=== PATIENT | male | born 1955 | race Caucasian/White ===

== ENCOUNTER → 2018-05-12 12:18 | Outpatient (CLI) | payer BC, SELFPAY ==
[2018-05-12 14:47] LABS: ALB/GLOB Ratio 0.9 RATIO (0.9-2.4); AST(SGOT) 26 U/L (15-37); Alanine Aminotransfer ALT/SGPT 31 U/L (16-61); Albumin, Serum 3.7 g/dL (3.2-5.0); Alkaline Phosphatase 83 U/L (45-117); Anion Gap 10 (5-15); BUN 18 mg/dL (7-18); BUN/Creat Ratio 21.5 RATIO (10-20); Calcium,Total 8.9 mg/dL (8.5-10.1); Chloride 102 mmol/L (98-107); Cholesterol 232 mg/dL (200); Creatinine, Serum 0.84 mg/dL (0.70-1.30); EST Glomerular Filtration Rate 99 mL/min (>60); Est Glom Filt Rate - Afr Amer 120 mL/min (>60); Globulin 4.3 g/dL (2.2-4.2); Glucose 106 mg/dL (74-106); High Density Lipoprotein 47 mg/dL; Potassium 3.6 mmol/L (3.5-5.1); Sodium Level 137 mmol/L (136-145); Triglycerides 150 mg/dL; Very Low Density Lipoprotein 30 mg/dL (5-40)
== END ==
PROVIDERS: Family Provider Family Medicine; PCP Family Medicine; Visit Provider Family Medicine
DX: Z00.00 Encounter for general adult medical examination without abnormal findings (principal); I10 Essential (primary) hypertension
CPT/HCPCS: 36415; 80053; 80061

== ENCOUNTER → 2019-02-08 08:28 | Outpatient (CLI) | payer BC, SELFPAY ==
[2019-02-08 10:38] LABS: ALB/GLOB Ratio 0.9 RATIO (0.9-2.4); AST(SGOT) 22 U/L (15-37); Alanine Aminotransfer ALT/SGPT 23 U/L (16-61); Albumin, Serum 3.5 g/dL (3.2-5.0); Alkaline Phosphatase 89 U/L (45-117); Anion Gap 8 (5-15); BUN 15 mg/dL (7-18); BUN/Creat Ratio 19.5 RATIO (10-20); Chloride 103 mmol/L (98-107); Cholesterol 220 mg/dL (200); Creatinine, Serum 0.77 mg/dL (0.70-1.30); EST Glomerular Filtration Rate 109 mL/min (>60); Est Glom Filt Rate - Afr Amer 132 mL/min (>60); Globulin 3.9 g/dL (2.2-4.2); Glucose 101 mg/dL (74-106); High Density Lipoprotein 53 mg/dL; PSA,Total - Annual Screen 6.84 ng/mL (0.00-4.00); Potassium 4.6 mmol/L (3.5-5.1); Protein, Total 7.4 g/dL (6.4-8.2); Sodium Level 139 mmol/L (136-145); Triglycerides 131 mg/dL; Very Low Density Lipoprotein 26 mg/dL (5-40)
== END ==
PROVIDERS: Family Provider Family Medicine; PCP Family Medicine; Referring Provider Family Medicine; Visit Provider Family Medicine
DX: I10 Essential (primary) hypertension (principal); N40.0 Benign prostatic hyperplasia without lower urinary tract symptoms; R73.01 Impaired fasting glucose
CPT/HCPCS: 36415; 80053; 80061; 84153; G0103

== ENCOUNTER → 2019-04-19 08:07 | Outpatient (CLI) | payer OTHER, SELFPAY ==
[2019-04-19 10:38] LABS: ALB/GLOB Ratio 0.9 RATIO (0.9-2.4); AST(SGOT) 23 U/L (15-37); Alanine Aminotransfer ALT/SGPT 25 U/L (16-61); Albumin, Serum 3.3 g/dL (3.2-5.0); Alkaline Phosphatase 93 U/L (45-117); Anion Gap 8 (5-15); BUN 17 mg/dL (7-18); BUN/Creat Ratio 22.5 RATIO (10-20); Calcium,Total 8.8 mg/dL (8.5-10.1); Chloride 106 mmol/L (98-107); Cholesterol 142 mg/dL (200); Creatinine, Serum 0.76 mg/dL (0.70-1.30); EST Glomerular Filtration Rate 111 mL/min (>60); Est Glom Filt Rate - Afr Amer 135 mL/min (>60); Globulin 3.8 g/dL (2.2-4.2); Glucose 101 mg/dL (74-106); High Density Lipoprotein 49 mg/dL; Potassium 4.4 mmol/L (3.5-5.1); Protein, Total 7.1 g/dL (6.4-8.2); Sodium Level 139 mmol/L (136-145); Triglycerides 76 mg/dL; Very Low Density Lipoprotein 15 mg/dL (5-40)
== END ==
PROVIDERS: Family Provider Family Medicine; PCP Family Medicine; Referring Provider Family Medicine; Visit Provider Family Medicine
DX: I10 Essential (primary) hypertension (principal)
CPT/HCPCS: 36415; 80053; 80061

== ENCOUNTER → 2020-05-14 10:14 | Outpatient (CLI) | payer BC, SELFPAY ==
[2020-05-14 12:48] LABS: ALB/GLOB Ratio 0.8 RATIO (0.9-2.4); AST(SGOT) 24 U/L (15-37); Alanine Aminotransfer ALT/SGPT 28 U/L (16-61); Albumin, Serum 3.3 g/dL (3.2-5.0); Alkaline Phosphatase 94 U/L (45-117); Anion Gap 7 (5-15); BUN 18 mg/dL (7-18); Calcium,Total 8.8 mg/dL (8.5-10.1); Chloride 102 mmol/L (98-107); Cholesterol 179 mg/dL (200); Creatinine, Serum 0.82 mg/dL (0.70-1.30); EST Glomerular Filtration Rate 101 mL/min (>60); Est Glom Filt Rate - Afr Amer 122 mL/min (>60); Globulin 4.3 g/dL (2.2-4.2); Glucose 111 mg/dL (74-106); High Density Lipoprotein 41 mg/dL; PSA,Total - Annual Screen 6.83 ng/mL (0.00-4.00); Potassium 4.2 mmol/L (3.5-5.1); Protein, Total 7.6 g/dL (6.4-8.2); Sodium Level 137 mmol/L (136-145); Triglycerides 110 mg/dL; Very Low Density Lipoprotein 22 mg/dL (5-40)
== END ==
PROVIDERS: PCP Family Medicine; Visit Provider Family Medicine
DX: I10 Essential (primary) hypertension (principal); N40.0 Benign prostatic hyperplasia without lower urinary tract symptoms
CPT/HCPCS: 36415; 80053; 80061; 84153; G0103

== ENCOUNTER 2020-06-18 12:11 | Inpatient (IN) | payer BC, SELFPAY ==
[2020-06-18] VITALS (9 sets, daily range): BP systolic 106–151; BP diastolic 58–76; PULSE 41–70; RESP 15–16; TEMP 36.4–36.7; O2SAT 48–98; BMI 37.9; BMI 37.7
--- NOTE | 2020-06-18 12:23 | EKG12_ITS ---
Test Reason : BRADYCARDIA Blood Pressure : / mmHG Vent. Rate : 041 BPM Atrial Rate : 041 BPM P-R Int : 302 ms QRS Dur : 124 ms QT Int : 518 ms P-R-T Axes : 023 -43 009 degrees QTc Int : 427 ms Marked sinus bradycardia with 2nd degree AV block with 2:1 heart block Left axis deviation Septal infarct , age undetermined Abnormal ECG When compared with ECG of 19-DEC-2007 10:25, Significant changes have occurred Confirmed by GERMAN SALAZAR, SANG ([id number]), commissioning editor EDGARD ADKINS ([id number] on 06/20/2020 3:51:37 PM Referred By: DR MCFARLAND Confirmed By:SANG PORTER MD
--- NOTE | 2020-06-18 12:27 | ED.VISSUMM ---
- ER Visit Summary Date of Service: 06/18/20 Chief Complaint: Irregular heartbeat History of Present Illness: The patient is a 65 M who was referred to the ED from his director of investigations office. He was at a visit for sleep apnea. He was noted to have an irregular heartbeat on exam and was referred to the ED. He has no symptoms. No history of atrial fibrillation or other abnormal heart rhythms. He is not on anticoagulation. No history of coronary disease or PE. Physical Examination: Afebrile and vital signs unremarkable except for heart rate of 56. Alert and oriented. No acute distress. Heart is a regular. Lungs are clear. Skin appears normal. Calves soft and supple. Test Results: EKG, chest x-ray, labs pending. Emergency Department Course and Treatment: Patient placed on the monitor. Treated with aspirin while awaiting results. EKG shows what appears to be secondary heart block, Mobitz type II with 2-1 ventricular conduction and a ventricular rate of 43. While I am evaluating him, his heart rate will increase to the 80s and then return to the 40s fairly frequently. His work-up here is unremarkable including labs and chest x-ray. He has remained stable and has no symptoms currently. I spoke with Dr. Lieca who spoke with Dr. Cabello, and we feel that he can receive care at this facility. Patient will be admitted to Dr. Barrios. Treatment Plan: As above Disposition: PCU Impression: Secondary heart block suspected This note was generated with Edictive dictation software. It may contain incorrect words, spelling, and punctuation that were not noted in review of the chart prior to signing ED Disposition - Plan for ED Patient: Referrals: Ras Alberts MD [Primary Care Provider] -
[2020-06-18] MEDS: Aspirin 81 MG TAB.CHEW 324 MG PO (12:30)
--- NOTE | 2020-06-18 12:35 | RAD_ITS ---
STUDY: X-RAY CHEST REASON FOR EXAM: Male, 65 years old. PALPITATIONS, ASTHMA TECHNIQUE: Single AP portable view of the chest. COMPARISON: None. FINDINGS: EKG electrodes are seen. The lungs are clear and expanded. Scattered calcified granulomas. There is no demonstrated pleural abnormality. Normal size heart. Normal mediastinum and teresa. Normal visualized pulmonary arteries. Normal visualized aortic arch and descending thoracic aorta. There are diffuse degenerative changes of the visualized thoracic spine. Normal visualized ribs, clavicles, and shoulders. There is no demonstrated abnormality of the visualized soft tissue structures of the upper abdomen. RAD/Chest 1 View (Portable) IMPRESSION: No acute abnormality is seen. Electronically Signed: Duarte Bullock, at 13:04 EDT , Service support ,
[2020-06-18 12:36] LABS: Absolute Lymphocyte Count 2.23 X10^3/uL (0.83-4.51); Absolute Neutrophil Count 7.5 X10^3/uL (2.0-7.7); Basophil% 0.9 % (0-1); Eosinophil# 0.53 X10^3/uL; Eosinophils% 4.6 % (0-5); Hematocrit 40.5 % (40-54); Hemoglobin 13.6 g/dL (13.0-16.5); Lymphocyte # 2.23 X10^3/ul (4.0); Lymphocyte % 19.5 % (19-41); Mean Corp Hgb Conc 33.6 g/dL (32-36); Mean Corpuscular Volume 89.4 fL (80-94); Mean Platelet Vol. 12.4 fl (6.2-12.0); Monocyte% 8.8 % (0-10); NRBC Flagged by Analyzer 0 % (0-5); Neutrophil # 7.52 X10^3/uL (2.7-7.7); Neutrophil % 65.9 % (47-70); Platelet Count 194 K/mm3 (150-450); RBC Distribution Width CV 13.7 % (11.6-14.6); RBC Distribution Width SD 44.6 fl (35.1-43.9); Red Blood Count 4.53 M/mm3 (4.6-6.2); White Blood Count 11.4 K/mm3 (4.4-11.0)
[2020-06-18 12:39] LABS: Prothrombin Time (Protime)PT. 12.8 SECONDS (11.7-14.9)
[2020-06-18 12:40] LABS: Partial Thromboplast Time 30.5 Seconds (24.1-36.2)
[2020-06-18 13:00] LABS: Anion Gap 5 (5-15); BUN 18 mg/dL (7-18); Calcium,Total 8.9 mg/dL (8.5-10.1); Chloride 106 mmol/L (98-107); Creatinine, Serum 0.82 mg/dL (0.70-1.30); EST Glomerular Filtration Rate 101 mL/min (>60); Est Glom Filt Rate - Afr Amer 123 mL/min (>60); Estimated Creatinine Clearance 86.21 ml/min; Glucose 90 mg/dL (74-106); Potassium 3.8 mmol/L (3.5-5.1); Sodium Level 138 mmol/L (136-145)
--- NOTE | 2020-06-18 13:31 | HP.PCM_ITS ---
Problem List (1) Bradycardia Status: Acute (2) Hypertension Status: Chronic Qualifiers: Hypertension type: essential hypertension Qualified Code(s): I10 - Essential (primary) hypertension (3) Sleep apnea Status: Chronic Qualifiers: Sleep apnea type: unspecified type Qualified Code(s): G47.30 - Sleep apnea, unspecified History of Present Illness Date of Admission: 06/18/20 Chief Complaint: Irregular heart rate - noted today The patient is a 65 year old M with PMHx of Hypertension, hyperlipidemia, suspected sleep apnea who comes in from Dr. Miranda's office. Patient had gone to the Dr. Miranda's office as a referral for suspected sleep apnea. During the process of taking vitals during intake, patient was noted to have bradycardia. He was sent to the ED. He denied any history of heart disease. He denied any complaints such as dizziness or palpitations or chest discomfort. He is not on beta-blockers or calcium channel blockers. He feels well. No recent tick bites. No history of sarcoidosis. Vitals in the ED showed temperature of 97.6F, heart rate 56, blood pressure 151/76, respiratory to 16, SPO2 was 97% on room air. WBC count was 11.4, hemoglobin 13.6, platelet count 194, INR 1.0, CMP was unremarkable, troponin was negative. Magnesium 2.1, TSH 0.94. EKG shows normal sinus rhythm, CT interval of 290, second-degree AV block type II, 2:1 ratio, QTc 419, no acute ST-T changes. Chest x-ray shows no acute abnormality. Past Medical History Past Medical History (Chronic Problems): Chronic Problems Hypertension (Chronic) Sleep apnea (Chronic) Allergies cephalexin [From Keflex] Allergy (Verified 06/18/20 12:15) Hives Home Medications: Ambulatory Orders Medication Instructions Recorded Acetaminophen [Tylenol Extra 1,000 mg PO DAILY PRN PRN 06/18/20 Strength] Albuterol Sulfate [Albuterol 1 - 2 puff IH Q4H PRN PRN 06/18/20 Sulfate HFA] Atorvastatin Calcium [Lipitor] 10 mg PO DAILY 06/18/20 Bifidobacterium Infantis [Align] 4 mg PO DAILY 06/18/20 Fluticasone 0.05% [Flonase Nasal 2 spray NASAL DAILY PRN PRN 06/18/20 [place]] Hydrochlorothiazide [Hctz] 12.5 mg PO DAILY 06/18/20 Loratadine 10 mg PO DAILY 06/18/20 Losartan Potassium [Cozaar] 50 mg PO DAILY 06/18/20 Mometasone Furoate [Asmanex 110 1 puff IH DAILY 06/18/20 mcg Twisthaler] Surgical History: cataract, - - s/p right knee menisceal repair Psychiatric History: No pertinent psych hx Lives: Spouse/ Significant Other Smoking Status: Never smoker Tobacco Use: Non-smoker Alcohol: None Drugs: None - *Family History Maternal History Items: Diabetes, Heart Disease Paternal History Items: Heart Disease - [place] Review of Systems Constitutional: Denies: Anorexia, Chills, Fever, Malaise, Weakness, Weight Change, Fatigue Eyes: Denies: Blurred vision, Cataracts, Conjunctivae Inflammation, Pain, Redness HEENT: Denies: Difficulty Hearing, Difficulty Swallowing, Head Aches, Hearing Changes, Sinus Congestion, Sinus Drainage, Sore Throat Cardiovascular: Denies: Chest Pain, Claudication, Orthopnea, Palpitations, Paroxysmal Noc. Dyspnea Respiratory: Denies: Cough, Hemoptysis, Shortness of breath at rest, Shortness of breath upon exertion, Sputum production Gastrointestinal: Denies: Abdominal Pain, Hematemesis, Hematochezia, Nausea, Vomiting Genitourinary: Denies: Dysuria Musculoskeletal: Denies: Joint Pain, Joint stiffness, Joint swelling, Joint Tenderness Skin: Denies: Rash, Wounds Neurological: Denies: Difficulty swallowing, Focal weakness, Numbness, Tingling Psychiatric: Denies: Anxiety, Depression, Homicidal Ideations, Suicidal Ideations Hematologic/ Lymphatic: Denies: Easy Bruising, Easy Bleeding VTE Information - Inpt Only VTE Present on Admission: No VTE Pharm Prophylaxis ordered?: Yes Patient Problems: Active and Suspected Problems Bradycardia (Acute) - Physical Exam Vitals/I&O's: Vital Signs Temp Pulse Resp BP Pulse Ox 97.6 F L 56 L 16 151/76 H 48 06/18/20 12:13 06/18/20 12:13 06/18/20 12:13 06/18/20 12:13 06/18/20 12:24 Oxygen Delivery Method Room Air Weight: 109.769 kg Body Mass Index (BMI) 37.9 General: Alert, Oriented x3, Cooperative, No apparent distress, - - obese HEENT: Atraumatic, PERRLA, EOMI, Normocephalic Oral: Moist Mucosa Neck: Supple Lungs: Clear to auscultation, Normal air movement Cardiovascular: Regular rate, Regular Rhythm, Normal S1, Normal S2, No murmurs Abdomen: Bowel Sounds Present, Soft, Non Tender, Non-Distended, No Hepato- splenomegaly Extremities: No edema Skin: No rashes Musculoskeletal: No Tenderness to Palpation of Joints or Extremities Lymphatic: No Cervical, Supraclavicular, or Inguinal Adenopathy Neurological: Cranial nerves II-XII grossly intact, Neuro grossly intact Psych/Mental Status: Normal Affect, Appropriate Laboratory Results 06/18/20 12:20: WBC 11.4 H, RBC 4.53 L, Hgb 13.6, Hct 40.5, MCV 89.4, MCH 30.0, MCHC 33.6, RDW Std Deviation 44.6 H, RDW Coeff of Karyn 13.7, Plt Count 194, MPV 12.4 H, Immature Gran % (Auto) 0.300, Neut % (Auto) 65.9, Lymph % (Auto) 19.5, [place] % (Auto) 8.8, Eos % (Auto) 4.6, Baso % (Auto) 0.9, Absolute Neuts (auto) 7.5, Absolute Lymphs (auto) 2.23, Nucleated RBC % 0 06/18/20 12:20: PT 12.8, INR 1.0, APTT 30.5 06/18/20 12:20: Sodium 138, Potassium 3.8, Chloride 106, Carbon Dioxide 27.0, Anion Gap 5, BUN 18, Creatinine 0.82, Estim Creat Clear Calc 86.21, Est GFR (MDRD) Af Amer 123, Est GFR (MDRD) Non-Af 101, BUN/Creatinine Ratio 22.0 H, Glucose 90, Calcium 8.9, Troponin I < 0.015 Assessment/Plan All Active Problems Bradycardia (Acute) 65 year old M with PMHx of Hypertension, hyperlipidemia, suspected sleep apnea who comes in with bradycardia 1. Bradycardia, 2nd degree AV block type 2, significant, asymptomatic Likely related to suspected DEONDRE No history of structural heart disease or likely medication side effect TSH is normal, magnesium is 2.1, findings are negative Cardiology consulted from the ED, will get 2D echo, Continue to monitor on telemetry 2. Hypertension, fairly uncontrolled, continue on home losartan, hydrochlorothiazide 3. Hyperlipidemia, continue on statin 4. Asthma/chronic allergies, not in acute exacerbation, continue on mometasone and loratadine 5. Suspected sleep apnea, will need to follow-up with crown ironer operator 6. DVT PPx- Lovenox SC Inpatient E&M: [id number] Init Hosp L3
--- NOTE | 2020-06-18 13:44 | NURSING ---
PCU PAINTSIL 2ND DEGREE HEART BLOCK
--- NOTE | 2020-06-18 15:03 | ECHOCS_ITS ---
Reason For Study: ARRHYTHMIA Procedure This was a 2D Doppler, Color Flow transthoracic echocardiogram. The study was technically difficult. Due to body habitus. Contrast injection was performed. Exam performed portable in patient room. Left Ventricle Normal LV size. Left ventricular systolic function is normal. The estimated ejection fraction is 60 %. Unable to assess diastolic dysfunction. No regional wall motion abnormalities noted. Right Ventricle Normal RV size. Normal systolic function. Atria Normal left atrium. Normal right atrium. No doppler evidence for ASD. Mitral Valve There is no mitral annular calcification. Normal mitral valve. Mild (1+) mitral valve insufficiency. Tricuspid Valve Normal tricuspid valve. Trivial tricuspid valve insufficiency. Unable to estimate RV systolic pressure/pulmonary artery pressure due to technically difficult study. Aortic Valve Trisinus/trileaflet aortic valve. Normal aortic valve. Pulmonic Valve The pulmonic valve is not well visualized. Great Vessels Normal sized aortic root. Pericardium/Pleural No pericardial effusion. MMode/2D Measurements & Calculations LVIDd: 5.3 cm IVSd: 1.1 cm Ao root diam: 3.5 cm LVIDs: 3.9 cm LVPWd: 1.1 cm FS: 25.4 % LAV(MOD-bp): 84.6 ml LA A4 area: 26.6 cm2 LA dimension(2D): 4.1 cm LAV(MOD-bp) Indexed: 38.6 ml/m2 LAV(MOD-sp2): 78.7 ml LAV(MOD-sp4): 91.5 ml Doppler Measurements & Calculations MV E max kamaljit: 118.9 cm/sec Ao V2 max: 173.5 cm/sec LV V1 max: 89.0 cm/sec Ao max P.1 mmHg LV V1 max P.2 mmHg PA V2 max: 98.0 cm/sec Interpretation Summary The study was technically difficult. Contrast injection was performed. Left ventricular systolic function is normal. The estimated ejection fraction is 60 %. Mild (1+) mitral valve insufficiency. Trivial tricuspid valve insufficiency. Unable to estimate RV systolic pressure/pulmonary artery pressure due to technically difficult study. Unable to assess diastolic dysfunction. Ordering Physician: Sophie^Destiny^^^ Referring Physician: Wicho Alberts Performed By: Kalyn Whipple, ELIZABETH, RVT
[2020-06-18 15:38] LABS: Magnesium 2.1 mg/dL (1.6-2.6); Thyroid Stim Hormone (TSH) 0.94 uIU/mL (0.358-3.74)
--- NOTE | 2020-06-18 17:31 | PCM.CONS.C ---
Problem List (1) Conduction disorder of the heart Status: Acute (2) Hypertension Status: Chronic Qualifiers: Hypertension type: essential hypertension Qualified Code(s): I10 - Essential (primary) hypertension (3) Sleep apnea Status: Chronic Qualifiers: Sleep apnea type: unspecified type Qualified Code(s): G47.30 - Sleep apnea, unspecified Reason for Consult Date of Consultation: 06/18/20 History of Present Illness: The patient is a 65 year old who is referred for evaluation of an underlying irregular heartbeat with findings of an underlying conduction system disorder while being evaluated for sleep apnea. The patient states to the best of his knowledge he has no defined cardiovascular disease. He believes he had an exercise tolerance test performed many years ago which was unremarkable. He states that he does get exertional chest discomfort/pressure at times across the top of his chest. This can be associate with shortness of breath and dyspnea. He has attributed this to his exercise-induced asthma. He does not seem to sense this discomfort at rest or at night. He has had no orthopnea, PND, or peripheral pitting edema. There has been no obvious palpitations or rapid heart rates and no obvious near-syncope or syncope. He was being evaluated by his marketing project manager today for consideration for a sleep study based upon concerns of obstructive sleep apnea. During this evaluation he was told he had a irregular heartbeat . He was recommended to contact his PCP. He did and his PCP recommended evaluation in the emergency department. There he had cardiac rhythm strips performed which demonstrated a combination of sinus rhythm/sinus tachycardia with first-degree AV block as well as sinus rhythm with first-degree block with evidence of 2-1 AV block with a left axis deviation and consideration for voltage criteria for LVH. He had a troponin I level which was negative. A chest x-ray was performed which demonstrated no acute cardiopulmonary disease. He was placed in the PCU for further evaluation. He has been on cardiac bus monitor. He has been noted to have evidence of his sinus rhythm with 2-1 AV block as well as PVCs and ventricular couplets. Does state he has a family history where his father at age 57 of a heart attack . He states he has an older brother who has heart related disease. He has another brother who has a permanent pacemaker secondary to a syncopal event. [] Past Medical History Allergies/Adverse Reactions: Allergies cephalexin [From Keflex] Allergy (Verified 06/18/20 12:15) Hives Home Medications: Ambulatory Orders Medication Instructions Recorded Acetaminophen [Tylenol Extra 1,000 mg PO DAILY PRN PRN 06/18/20 Strength] Albuterol Sulfate [Albuterol 1 - 2 puff IH Q4H PRN PRN 06/18/20 Sulfate HFA] Atorvastatin Calcium [Lipitor] 10 mg PO DAILY 06/18/20 Bifidobacterium Infantis [Align] 4 mg PO DAILY 06/18/20 Fluticasone 0.05% [Flonase Nasal 2 spray NASAL DAILY PRN PRN 06/18/20 [place]] Hydrochlorothiazide [Hctz] 12.5 mg PO DAILY 06/18/20 Loratadine 10 mg PO DAILY 06/18/20 Losartan Potassium [Cozaar] 50 mg PO DAILY 06/18/20 Mometasone Furoate [Asmanex 110 1 puff IH DAILY 06/18/20 mcg Twisthal[place]] Past Medical History (Chronic Problems): Chronic Problems Hypertension (Chronic) Sleep apnea (Chronic) Surgical History: cataract, - - s/p right knee menisceal repair Psychiatric History: No pertinent psych hx - *Family History Maternal History Items: Diabetes, Heart Disease Paternal History Items: Heart Disease - [place] Lives: Spouse/ Significant Other Smoking Status: Never smoker Tobacco Use: Non-smoker Alcohol: None Drugs: None Review of Systems - Review of Systems General: Denies: Fever, Night Sweats, Fatigue Cardiovascular: Reports: Chest Discomfort, Chest Discomfort with Exertion, Shortness of Breath, Shortness of Breath with Exertion. Denies: Orthopnea, PND, Peripheral Edema, Palpitations, Lightheadedness, Dizziness, Near Syncope, Syncope Respiratory: Reports: Shortness of Breath. Denies: Cough, Sputum Production, Hemoptysis Gastrointestinal: Denies: Hematemesis, Hematochezia, Melena Genitourinary: Denies: Dysuria, Hematuria Skin: Denies: Rash Subjectve: This is a 65-year-old white male who appears to be resting comfortably at the moment in no acute distress. Objective: Vital Signs Temp Pulse Resp BP Pulse Ox 97.6 F L 59 L 16 145/66 H 96 06/18/20 15:15 06/18/20 15:36 06/18/20 15:15 06/18/20 15:15 06/18/20 15:15 Oxygen Delivery Method Room Air Weight: 241 lb Body Mass Index (BMI) 37.7 General: Healthy Appearing, Awake, Alert, Oriented x 3, Cooperative, No Acute Distress, Obese HEENT: Atraumatic, Normocephalic, PERRL, EOMI, Sclera Non Icteric Neck: Supple, Good ROM, No JVD Lungs: Expiratory Wheezes-Justin Cardiovascular: Regular Rhythm, Premature Ectopic Beats, Normal S1, Normal S2 Vascular: No Carotid Bruits Abdomen: Bowel Sounds Present, Soft, Non Tender Extremities: No edema Neurological: No Focal Motor or Sensory Deficit Psych/Mental Status: Appropriate 06/18/20 12:20: WBC 11.4 H, RBC 4.53 L, Hgb 13.6, Hct 40.5, MCV 89.4, MCH 30.0, MCHC 33.6, Plt Count 194, MPV 12.4 H, Immature Gran % (Auto) 0.300, Neut % (Auto) 65.9, Lymph % (Auto) 19.5, Mcdonald % (Auto) 8.8, Eos % (Auto) 4.6, Baso % (Auto) 0.9, Absolute Neuts (auto) 7.5, Nucleated RBC % 0 06/18/20 12:20: PT 12.8, INR 1.0, APTT 30.5 06/18/20 12:20: Sodium 138, Potassium 3.8, Chloride 106, Carbon Dioxide 27.0, Anion Gap 5, BUN 18, Creatinine 0.82, Est GFR (MDRD) Af Amer 123, Est GFR (MDRD) Non-Af 101, BUN/Creatinine Ratio 22.0 H, Glucose 90, Calcium 8.9, Troponin I < 0.015 06/18/20 12:20: Magnesium 2.1 Rhythm: As noted above EKG: As noted above ECHO: Interpretation Summary The study was technically difficult. Contrast injection was performed. Left ventricular systolic function is normal. The estimated ejection fraction is 60 %. Mild (1+) mitral valve insufficiency. Trivial tricuspid valve insufficiency. Unable to estimate RV systolic pressure/pulmonary artery pressure due to technically difficult study. Unable to assess diastolic dysfunction CXR: Preliminary evaluation: No acute cardiopulmonary disease process appreciated; please see official report Assessment/Plan 1. Conduction system disorder The patient does have findings compatible with an underlying conduction system disorder with findings compatible with not only first-degree AV block but also 2-1 AV block as well as evidence of underlying cardiac ectopy with ventricular ectopy with PVCs and ventricular couplets. The etiology is uncertain at this time although there is a concern if the patient does have obstructive sleep apnea this may be a contributing factor. However at the same time he does have concerning chest discomfort with exertional activity. This would raise concern as to whether or not he could have CAD with myocardial ischemia that would be bringing out symptoms and affecting his conduction system. At the present time he will continue to be monitored. His cardiac enzymes will be followed. He is already had evaluation with a transthoracic echocardiogram. He is avoiding any rate limiting medications at this time. It was felt reasonable the patient be considered based upon his history and objective findings for further evaluation of the possibility of CAD contributing to these events with a diagnostic cardiac catheterization. The procedure and risks were discussed with him. He is agreeable to this approach. Depending upon the findings he may also need further evaluation and therapy with a permanent pacemaker device. 2. Hypertension He does have history of hypertension. He will need to continue medical management deemed appropriate. At the present time this would include non-rate limiting therapy. 3. Sleep apnea He has presented with a history compatible with sleep apnea. He is pending further formal evaluation by his marketing project manager. Comment: The patient's case has been discussed the patient, his spouse, the [facility] emergency department staff, the [facility] hospital staff. This note was generated using a voice recognition system and there may be incorrect words, spelling or punctuation that were not noted when reviewing the office note prior to saving. Procedure Criteria Procedure Type: Elective COVID Risk Discussion: The surgeon/proceduralist and patient have discussed in detail the risk of exposure to and/or potential harm posed by the COVID-19 virus with having a surgery/procedure at this time versus the risk of delaying the surgery/procedure. It is not possible to know either the risk of delaying the surgery or procedure or chance of getting an infection with perfect accuracy, but a joint decision was made between the patient and the surgeon/proceduralist to proceed at this time with the scheduled surgery/procedure as indicated on the consent form.
--- NOTE | 2020-06-18 23:37 | EKG12_ITS ---
Test Reason : PALPS Blood Pressure : / mmHG Vent. Rate : 043 BPM Atrial Rate : 043 BPM P-R Int : 290 ms QRS Dur : 130 ms QT Int : 496 ms P-R-T Axes : 023 -44 003 degrees QTc Int : 419 ms Marked sinus bradycardia with 1st degree A-V block with 2:1 AV Block Left axis deviation Left ventricular hypertrophy with QRS widening Abnormal ECG Confirmed by ÁNGELA SALAZAR, AGUSTINA ([id number]), editor city BRITTNEY ARMENTA ([id number]) on 06/24/2020 9:16:05 AM Referred By: DINA Confirmed By:AGUSTINA MOTTA MD
[2020-06-19] VITALS (28 sets, daily range): BP systolic 100–156; BP diastolic 33–88; PULSE 35–89; RESP 14–18; TEMP 36.4–36.9; O2SAT 90–97
[2020-06-19 05:42] LABS: Absolute Lymphocyte Count 1.76 X10^3/uL (0.83-4.51); Absolute Neutrophil Count 6.5 X10^3/uL (2.0-7.7); Basophil# 0.08 X10^3/uL; Basophil% 0.8 % (0-1); Eosinophil# 0.93 X10^3/uL; Eosinophils% 9.2 % (0-5); Hematocrit 40.2 % (40-54); Hemoglobin 13.1 g/dL (13.0-16.5); Lymphocyte # 1.76 X10^3/ul (4.0); Lymphocyte % 17.3 % (19-41); Mean Corp Hgb Conc 32.6 g/dL (32-36); Mean Corpuscular Hgb 29.1 pg (27.0-32.0); Mean Corpuscular Volume 89.3 fL (80-94); Mean Platelet Vol. 12.5 fl (6.2-12.0); Monocyte# 0.88 X10^3/uL; Monocyte% 8.7 % (0-10); NRBC Flagged by Analyzer 0 % (0-5); Neutrophil # 6.45 X10^3/uL (2.7-7.7); Neutrophil % 63.5 % (47-70); Platelet Count 182 K/mm3 (150-450); RBC Distribution Width CV 13.6 % (11.6-14.6); RBC Distribution Width SD 44.2 fl (35.1-43.9); White Blood Count 10.2 K/mm3 (4.4-11.0)
--- NOTE | 2020-06-19 05:55 | EKG12_ITS ---
Test Reason : AM EKG Blood Pressure : / mmHG Vent. Rate : 040 BPM Atrial Rate : 040 BPM P-R Int : 310 ms QRS Dur : 156 ms QT Int : 594 ms P-R-T Axes : 020 -06 -43 degrees QTc Int : 484 ms Marked sinus bradycardia with 1st degree A-V block Left bundle branch block Abnormal ECG Confirmed by ÁNGELA SALAZAR, AGUSTINA ([id number]), loan expeditor EDGARD ADKINS ([id number]) on 06/20/2020 3:39:42 PM Referred By: CARRIE Confirmed By:AGUSTINA MOTTA MD
[2020-06-19 06:03] LABS: ALB/GLOB Ratio 0.8 RATIO (0.9-2.4); AST(SGOT) 26 U/L (15-37); Alanine Aminotransfer ALT/SGPT 28 U/L (16-61); Albumin, Serum 3.1 g/dL (3.2-5.0); Alkaline Phosphatase 96 U/L (45-117); Anion Gap 5 (5-15); BUN 16 mg/dL (7-18); BUN/Creat Ratio 22.5 RATIO (10-20); Calcium,Total 8.5 mg/dL (8.5-10.1); Chloride 104 mmol/L (98-107); Creatinine, Serum 0.71 mg/dL (0.70-1.30); EST Glomerular Filtration Rate 119 mL/min (>60); Est Glom Filt Rate - Afr Amer 144 mL/min (>60); Estimated Creatinine Clearance 99.56 ml/min; Glucose 110 mg/dL (74-106); Potassium 3.8 mmol/L (3.5-5.1); Protein, Total 7.1 g/dL (6.4-8.2); Sodium Level 137 mmol/L (136-145)
[2020-06-19] MEDS: Losartan Potassium 50 MG Tablet PO (06:18)
[2020-06-19] MEDS: Aspirin E.C. 81 MG Tablet PO (06:18)
[2020-06-19] MEDS: Budesonide Respules 0.5 MG/2 ML AMPUL.NEB. INHALATION ×2 (06:56→19:40)
[2020-06-19] MEDS: 0.9% Saline Lock 10 ML Syringe IV (07:29)
[2020-06-19] MEDS: 0.9% Normal Saline 1,000 ML 15 ML IV (07:29)
[2020-06-19] MEDS: 0.9% Normal Saline 1,000 ML 75 ML IV ×2 (09:24→21:13)
--- NOTE | 2020-06-19 09:42 | PN.CARD_ITS ---
Subjectve: The patient denies any acute complaints this morning. The patient has undergone further evaluation with diagnostic cardiac catheterization. He was not found to have angiographically significant appearing CAD. He is being considered for upcoming permanent pacemaker placement. Objective: Vital Signs Temp Pulse Resp BP Pulse Ox 97.5 F L 43 L 16 156/64 H 97 06/19/20 06:16 06/19/20 06:56 06/19/20 06:56 06/19/20 06:16 06/19/20 06:56 Oxygen Delivery Method Room Air Weight: 241 lb Body Mass Index (BMI) 37.7 Intake and Output for Last 24 Hours 06/17/20 06/18/20 06/19/20 23:59 23:59 23:59 Intake Total 480 / 600 148.75 / 148.75 Balance 480 / 600 148.75 / 148.75 General: Awake, Alert, Oriented x 3, Cooperative, Obese HEENT: Atraumatic, Normocephalic, PERRL, EOMI, Sclera Non Icteric Neck: Supple, Good ROM Lungs: Clear to auscultation Cardiovascular: Irregular Rhythm, Normal S1, Normal S2 Abdomen: Bowel Sounds Present, Soft, Non Tender Extremities: No edema Neurological: No Focal Motor or Sensory Deficit Psych/Mental Status: Appropriate 06/18/20 12:20: WBC 11.4 H, RBC 4.53 L, Hgb 13.6, Hct 40.5, MCV 89.4, MCH 30.0, MCHC 33.6, Plt Count 194, MPV 12.4 H, Immature Gran % (Auto) 0.300, Neut % (Auto) 65.9, Lymph % (Auto) 19.5, [place] % (Auto) 8.8, Eos % (Auto) 4.6, Baso % (Auto) 0.9, Absolute Neuts (auto) 7.5, Nucleated RBC % 0 06/18/20 12:20: PT 12.8, INR 1.0, APTT 30.5 06/18/20 12:20: Sodium 138, Potassium 3.8, Chloride 106, Carbon Dioxide 27.0, Anion Gap 5, BUN 18, Creatinine 0.82, Est GFR (MDRD) Af Amer 123, Est GFR (MDRD) Non-Af 101, BUN/Creatinine Ratio 22.0 H, Glucose 90, Calcium 8.9, Troponin I < 0.015 08/04/20 12:20: Magnesium 2.1 06/19/20 05:30: WBC 10.2, RBC 4.50 L, Hgb 13.1, Hct 40.2, MCV 89.3, MCH 29.1, MCHC 32.6, Plt Count 182, MPV 12.5 H, Immature Gran % (Auto) 0.500, Neut % (Auto) 63.5, Lymph % (Auto) 17.3 L, [place] % (Auto) 8.7, Eos % (Auto) 9.2 H, Baso % (Auto) 0.8, Absolute Neuts (auto) 6.5, Nucleated RBC % 0 06/19/20 05:30: Sodium 137, Potassium 3.8, Chloride 104, Carbon Dioxide 28.0, Anion Gap 5, BUN 16, Creatinine 0.71, Est GFR (MDRD) Af Amer 144, Est GFR (MDRD) Non-Af 119, BUN/Creatinine Ratio 22.5 H, Glucose 110 H, Calcium 8.5, Total Bilirubin 0.80 Rhythm: Sinus rhythm; episodes of 2-1 and 3-1 AV block Medical Necessity - Tobacco Use Smoking Status: Never smoker Tobacco Use: Non-smoker Assessment/Plan 1. Conduction system disorder The patient does have findings compatible with an underlying conduction system disorder with findings compatible with not only first-degree AV block but also 2-1 AV block and 3-1 AV block as well as evidence of underlying cardiac ectopy with ventricular ectopy with PVCs and ventricular couplets. The etiology is uncertain at this time although there is a concern if the patient does have obstructive sleep apnea this may be a contributing factor. The patient has undergone further evaluation with diagnostic cardiac catheterization. He did not appear to have angiographically significant appearing CAD. At the present time he will continue to be monitored. His cardiac enzymes will be followed. He is already had evaluation with a transthoracic echocardiogram. He is avoiding any rate limiting medications at this time. He is being considered for upcoming permanent pacemaker placement under the care of Dr. Cablelo. 2. Hypertension He does have history of hypertension. He will need to continue medical management deemed appropriate. At the present time this would include non-rate limiting therapy. 3. Sleep apnea He has presented with a history compatible with sleep apnea. He is pending further formal evaluation by his learning and development analyst. Comment: The patient's case has been discussed the patient, his spouse, his daughters, Dr. Reyes, and Dr. Cabello. This note was generated using a voice recognition system and there may be incorrect words, spelling or punctuation that were not noted when reviewing the office note prior to saving.
--- NOTE | 2020-06-19 09:51 | PN_ITS ---
Patient Problems: Active and Suspected Problems Bradycardia (Acute) Conduction disorder of the heart (Acute) Subjective: Chief complaint: Follow-up after admission for bradycardia with underlying conduction system disorder. Patient seen and examined. No acute events overnight but this morning, he denied any symptoms. No chest pain or shortness of breath. Denied dizziness or lightheadedness. No syncope or presyncope. He underwent cardiac catheterization this morning that revealed no evidence of significant CAD. Apart from bradycardia, other vital signs are stable. - Physical Exam Vitals/I&O's: Vital Signs Temp Pulse Resp BP Pulse Ox 97.5 F L 43 L 16 156/64 H 97 06/19/20 06:16 06/19/20 06:56 06/19/20 06:56 06/19/20 06:16 06/19/20 06:56 Oxygen Delivery Method Room Air Weight: 241 lb Body Mass Index (BMI) 37.7 Intake and Output for Last 24 Hours 06/17/20 06/18/20 06/19/20 23:59 23:59 23:59 Intake Total 480 / 600 148.75 / 148.75 Balance 480 / 600 148.75 / 148.75 General: Alert, Oriented x3, Cooperative, No apparent distress HEENT: Atraumatic, PERRLA, EOMI, Normocephalic Oral: Moist Mucosa, No Gingival or Mucosal Lesions/ Ulcerations Neck: Supple, No JVD, Negative Carotid Bruits, Trachea Midline, Thyroid Normal Size and Texture Lungs: Clear to auscultation, Normal air movement, No rhonchi, No wheeze, No rales Cardiovascular: Regular rate, Regular Rhythm, Normal S1, Normal S2, No murmurs, PMI Normal, Bradycardic Abdomen: Bowel Sounds Present, Soft, Non Tender, Non-Distended, No Hepato- splenomegaly Extremities: No clubbing, No cyanosis, No edema Skin: No rashes, No breakdown Lymphatic: No Cervical, Supraclavicular, or Inguinal Adenopathy Neurological: Cranial nerves II-XII grossly intact, Motor Exam 5/5 strength throughout Psych/Mental Status: Normal Affect, Appropriate, Alert and oriented to time, place, person, mood and affect Laboratory Results 06/18/20 12:20: WBC 11.4 H, RBC 4.53 L, Hgb 13.6, Hct 40.5, MCV 89.4, MCH 30.0, MCHC 33.6, RDW Std Deviation 44.6 H, RDW Coeff of Karyn 13.7, Plt Count 194, MPV 12.4 H, Immature Gran % (Auto) 0.300, Neut % (Auto) 65.9, Lymph % (Auto) 19.5, [place] % (Auto) 8.8, Eos % (Auto) 4.6, Baso % (Auto) 0.9, Absolute Neuts (auto) 7.5, Absolute Lymphs (auto) 2.23, Nucleated RBC % 0 06/18/20 12:20: PT 12.8, INR 1.0, APTT 30.5 06/18/20 12:20: Sodium 138, Potassium 3.8, Chloride 106, Carbon Dioxide 27.0, Anion Gap 5, BUN 18, Creatinine 0.82, Estim Creat Clear Calc 86.21, Est GFR (MDRD) Af Amer 123, Est GFR (MDRD) Non-Af 101, BUN/Creatinine Ratio 22.0 H, Glucose 90, Calcium 8.9, Troponin I < 0.015 06/18/20 12:20: Magnesium 2.1, TSH 0.94 06/19/20 05:30: WBC 10.2, RBC 4.50 L, Hgb 13.1, Hct 40.2, MCV 89.3, MCH 29.1, MCHC 32.6, RDW Std Deviation 44.2 H, RDW Coeff of Karyn 13.6, Plt Count 182, MPV 12.5 H, Immature Gran % (Auto) 0.500, Neut % (Auto) 63.5, Lymph % (Auto) 17.3 L, [place] % (Auto) 8.7, Eos % (Auto) 9.2 H, Baso % (Auto) 0.8, Absolute Neuts (auto) 6.5, Absolute Lymphs (auto) 1.76, Nucleated RBC % 0 06/19/20 05:30: Sodium 137, Potassium 3.8, Chloride 104, Carbon Dioxide 28.0, Anion Gap 5, BUN 16, Creatinine 0.71, Estim Creat Clear Calc 99.56, Est GFR (MDRD) Af Amer 144, Est GFR (MDRD) Non-Af 119, BUN/Creatinine Ratio 22.5 H, Glucose 110 H, Calcium 8.5, Total Bilirubin 0.80, AST 26, ALT 28, Alkaline Phosphatase 96, Total Protein 7.1, Albumin 3.1 L, Globulin 4.0, Albumin/Globulin Ratio 0.8 L 06/19/20 09:20: MRSA (PCR) Pending Clinical Impression(s) from Imaging Studies Chest X-Ray 06/18/20 12:35 IMPRESSION: No acute abnormality is seen. Electronically Signed: Duarte Bullock, at 13:04 EDT , Service support , Current Medications Acetaminophen (Tylenol) 650 mg PO Q6H PRN PRN PRN Reason: Pain Score 1-10/Temp > 100.7 F Aspirin (Ecotrin) 81 mg PO DAILY@0800 [facility] Last Admin: 06/19/20 06:18 Dose: 81 mg Documented by: Atorvastatin Calcium (Lipitor) 10 mg PO QHS [facility] Budesonide (Pulmicort Aerosol) 0.5 mg INHALATION Q12H.RT [facility] Last Admin: 06/19/20 06:56 Dose: 0.5 mg Documented by: Enoxaparin Sodium (Lovenox) 40 mg SC DAILY [facility] Last Admin: 06/19/20 09:25 Dose: Not Given Documented by: Hydrochlorothiazide () 12.5 mg PO QODAY [facility] Sodium Chloride () 250 mls @ 15 mls/hr IV .[id number] PRN PRN Reason: Saline Flush Sodium Chloride () 250 mls @ 15 mls/hr IV .[id number] PRN PRN Reason: Additional IVPB Infusion Sodium Chloride () 1,000 mls @ 0 mls/hr IV .Q0M [facility] Last Infusion: 06/19/20 09:24 Dose: Infused Documented by: Sodium Chloride () 1,000 mls @ 75 mls/hr IV .[id number] [facility] Last Admin: 06/19/20 09:24 Dose: 75 mls/hr Documented by: Losartan Potassium (Cozaar) 50 mg PO DAILY [facility] Last Admin: 06/19/20 06:18 Dose: 50 mg Documented by: Nitroglycerin (Nitrostat) 0.4 mg SUBLINGUAL Q5M PRN PRN Reason: CARDIAC/CHEST PAIN Ondansetron HCl (Zofran) 4 mg IV Q8H PRN PRN PRN Reason: NAUSEA/VOMITING Sodium Chloride () 10 - 40 ml IV UD PRN PRN Reason: SALINE FLUSH Last Admin: 06/19/20 07:29 Dose: 10 ml Documented by: Medical Necessity - Tobacco Use Smoking Status: Never smoker Tobacco Use: Non-smoker Assessment/Plan All Active Problems Bradycardia (Acute) Conduction disorder of the heart (Acute) This is a 65 years old male patient presented to the emergency room for irregular heartbeats, found to have severe bradycardia with heart rate down to 30s and he was admitted for evaluation and treatment. #1 severe bradycardia/underlying conduction system disorder: Patient was found to have 2-1 AV block and 3-1 AV block as well. Heart rate remained in the 40s, goes down to 30s. Blood pressure stable, other vital signs are stable. Serum electrolytes including potassium, magnesium were normal as well as calcium. TSH was normal. Cardiac enzymes are negative. He is not on any AV blocking medications. 2D echocardiogram revealed normal LV size and function, ejection fraction was 60%. He underwent cardiac catheterization that showed angiographically normal coronary arteries, report is pending. Cardiology on the case. Plan for placement of permanent pacemaker later today. #2 hypertension: Blood pressure stable, continue HCTZ and losartan. #3 hyperlipidemia: Continue statins. #4 asthma: Clinically stable, pulse ox is maintained on room air. Continue Pulmicort inhalation twice daily. #5 suspected obstructive sleep apnea: Recommended follow-up with pulmonology as outpatient. #6 DVT prophylaxis: Subcu Lovenox. This note was generated with [email or web address] dictation software. It may contain incorrect words, spelling, and punctuation that were not noted in checking the note before signing. Inpatient E&M: 55261 Subs Hosp L2
--- NOTE | 2020-06-19 11:52 | CASEMGMT ---
RN BLAZE DESK DIRECTOR CM to room to meet with patient for initial transition planning/care coordination assessment. FERNANDA THAKUR introduced self and role at [facility]. Pt voices understanding and consents to assessment at this time. Pt resting in bed in no distress at this time. at bedside. Pt is A/O at this time and answers all questions appropriately. Care providers, pharmacy, and demographics verified/updated at this time. PCP: Dr Alberts Specialists: Ignacio--pulmonology Preferred Pharmacy: [facility] [place] Insurance: [employer] Prescription Benefit: Yes Living Will/HPOA: Pt does not currently have LW/HCPOA and declines info at this time. Pt made aware that he can contact SW as an out-pt and make appt in the future if he decides he would like to talk with someone about this or would like to utilize [facility] social work for advanced directive completion. Given [employer] card with information and contact number. Pt expresses understanding. LNOK: , Vahid. 2 daughters: Mariola and Nina Living Arrangements: Lives w/his in 2-story home w/2-3 steps to enter. Denies difficulty w/stairs. Independent w/ADL's and IADL's. /pt share home mgmt tasks. Pt works full-time. Transportation: Pt states drives self and states no transportation concerns at this time. also drives DME: Denies using any DME and denies needs. Has DEONDRE. Does not have BIPAP/CPAP yet. Was @ Dr Sarmiento's office for sleep apnea consult when bradycardia found and pt sent to ER. HHC/SNF: No history of either. No needs identified. Pt wishes to return home and states has no concerns with going home at time of discharge. CM to follow for any discharge planning/needs. Pt/ voice no concerns/needs at this time. Advised pt/ to ask for CM if any questions/concerns/needs arise. Voices understanding. PLAN: Home. Grecia MCCARTHY RN, CM
--- NOTE | 2020-06-19 14:27 | CL.IE_ITS ---
Patient: HEVER OCHOA Study Date: 06/19/2020 Performing: Kwame Cabello MD : 1955 Age: 65 Gender: male PROCEDURES PERFORMED [id number] PACER INSERT+DUAL LEADS INDICATIONS Mobitz (type II) AV block PROCEDURE DETAILS The patient was brought to the Catheterization Lab in the postabsorptive nonsedated state. Infor med consent was obtained prior to the procedure. Local anesthetic was given subcutaneously to the le ft upper chest area with Lidocaine 2%. Incision was made to the left upper chest. Access was achieved and a guidewire was advanced into the left subclavian vein. PPM ventricular lead was inserted / posi tioned to right ventricular apex. The sheath was then removed. PPM atrial lead was inserted / positio perla to the right atrial appendage. The sheath was then removed. The Atrial lead sutured in place with 2-0 Silk. The Ventricular PM lead sutured in place with 2-0 Silk. Device pocket was irrigated with b acitracin antibiotic. PPM generator was attached to the lead(s) and inserted into the pocket. PPM gen erator was then interrogated by the etl programmer. Subcutaneous closure was completed with 3-0 Vicryl. S kin closure was completed with 4-0 Vicryl. Steri-strips applied to left subclavicular incision. The patient tolerated the procedure well. Estimated Blood Loss: < 10 mls IMPLANTED / EX-PLANTED DEVICES IMPLANTED DEVICE(S): PPM Ventricular lead - Boiler Room Helper: [employer], Model # Ingevity 7842 , Serial # [id number] PPM Atrial lead - Boiler Room Helper: [employer], Model # Ingevity 7841 , Serial # [id number] PPM Generator - Boiler Room Helper: Spindle, Model # [employer] MRI DR Pacemaker L111 , Serial # [id number] DEVICE PARAMETERS ATRIAL LEAD PARAMETERS: P wave- 4.2 (mV) Current- 0.9 (mA) threshold- 0.6 (V) impedence- 670 (OHMS) VENTRICULAR LEAD PARAMETERS: R wave- 11.1 (mV) Current- 1.0 (mA) threshold- 0.7 (V) impedence- 717 (OHMS) DEVICE PARAMETERS: Mode- DDD Lower rate- 60 Upper rate- 130 CONCLUSIONS / RECOMMENDATIONS Device Conclusions: Successful implantation of a dual chamber pacemaker Device Recommendations: Follow up with Primary Care Physician PROCEDURE MEDICATIONS Fentanyl 50 mcg IV Versed 1 mg IV Versed 1 mg IV Versed 1 mg IV Antibiotic given in appropriate timeframe. Signed By Kwame Cabello MD On 06/19/2020 14:26:19 Kwame Cabello MD
[2020-06-19 16:30] LABS: M R Staph aureus DNA By PCR Negative (Negative); Probe Check PASS; Specimen Processing Control PASS
[2020-06-19] MEDS: Acetaminophen 325 MG Tablet 650 MG PO (16:42)
--- NOTE | 2020-06-19 18:16 | CL.D_ITS ---
Patient Name: HEVER OCHOA Study Date: 06/19/2020 Performing: Tyler Licea MD Ht: 67 inches 170 cm : 1955 Wt: 240.6 lbs 109 kg Age: 65 Gender: male BSA: 2.18 PROCEDURE(S) PERFORMED [id number] CLINICAL PROFILE AND INDICATIONS Indications: Suspected CAD, Cardiac Arrythmia Heart Failure: None Stress/Imaging Stress/Image Study Performed: No Angina Classification Anginal Classification w/in 2 Weeks: CCS II CAD Presentations: Stable angina. CONCLUSIONS [place] Multivessel CAD (non angiographically significant) RECOMMENDATIONS Risk factor modification Medical therapy Evaluation for PPM DESCRIPTION OF PROCEDURE The patient arrived to the procedure lab. The risks and benefits of the procedure as well as a full d escription of our services here and current unavailability of surgical backup were fully explained to the patient and/or their significant other prior to the catheterization. The Timeout was completed, verifying the correct patient and procedure. The patient's procedural site was prepped and draped in the usual fashion. Local anesthetic was given subcutaneously to right radial region with Lidocaine 2% . Using a modified Seldinger technique, arterial access was obtained via the right radial artery, a 6 Fr sheath was inserted. Right Coronary Artery selective angiography was then performed in multiple v iews using a 5 Fr. 4.0 [place] catheter. Left Coronary Artery selective angiography was performed in mu ltiple views using a 5 Fr. 4.0 [place] catheter.The arterial sheath was pulled and a TR Band was applie d for hemostasis CORONARY ANGIOGRAPHY DOMINANCE: Right Dominant LEFT HEART ASSESSMENT Left Ventricular Ejection Fraction: Not assessed LEFT ANTERIOR DESCENDING ARTERY: Mild luminal irregularities CIRCUMFLEX ARTERY: Mild luminal irregularities RIGHT CORONARY ARTERY: Mild luminal irregularities PROX RCA: eccentric: 25 % Stenosis DISTAL RCA: eccentric: 25 % Stenosis COMPLICATIONS No Complications PROCEDURE MEDICATIONS Fentanyl 50 mcg IV Versed 1 mg IV Oxygen: 2 L/min via nasal cannula Heparin diluted in 23cc Heparinized saline. Patient given 10cc IA of this solution. 06/19/2020 08:13:0 6 Verapamil 2.5mg, Ntg 100mcgs, 2000 units of Heparin diluted in 23cc Heparinized saline. Patient give n 10cc IA of this solution. 06/19/2020 08:13:06 SUMMARY OF HEMODYNAMIC DATA Time AIR REST ECG 07:51:17 AO 138/63 (83) SA 08:14:28 Signed By Tyler Licea MD On 06/19/2020 18:15:59 Tyler Licea MD
[2020-06-19] MEDS: Atorvastatin Calcium 10 MG Tablet PO (21:13)
[2020-06-20] VITALS (7 sets, daily range): BP systolic 139–164; BP diastolic 75–87; PULSE 74–91; RESP 16–18; TEMP 36.5–36.9; O2SAT 95–97
[2020-06-20] MEDS: Acetaminophen 325 MG Tablet 650 MG PO (01:49)
--- NOTE | 2020-06-20 05:55 | RAD_ITS ---
HISTORY: s/p pacemaker insertionto exclude pneumothorax ADDITIONAL HISTORY: None provided. COMPARISON: 06/18/2020 EXAMINATION/TECHNIQUE: XR Chest 3 Views including AP views in inspiration and expiration and lateral view Number of images including paperwork: 3 FINDINGS: LUNGS AND PLEURA: No consolidation, mass or pleural effusion. CARDIAC SILHOUETTE: Stably enlarged. MEDIASTINUM AND CHING: Stable. UPPER ABDOMEN: Unremarkable. SKELETON AND SOFT TISSUES: No acute findings. Degenerative changes. OTHER DEVICES AND HARDWARE: Pacemaker with left-sided generator. RAD/Chest 3 View IMPRESSION: No acute cardiopulmonary abnormality. at 0744 Reported and signed by: Angela Cruz MD Electronically Signed: Angela Cruz MD at 7:44 EDT Tel , Service support ,
[2020-06-20 06:18] LABS: Absolute Lymphocyte Count 1.36 X10^3/uL (0.83-4.51); Absolute Neutrophil Count 7.3 X10^3/uL (2.0-7.7); Basophil# 0.05 X10^3/uL; Basophil% 0.5 % (0-1); Eosinophil# 0.67 X10^3/uL; Eosinophils% 6.5 % (0-5); Hematocrit 39.4 % (40-54); Hemoglobin 12.9 g/dL (13.0-16.5); Lymphocyte # 1.36 X10^3/ul (4.0); Lymphocyte % 13.3 % (19-41); Mean Corp Hgb Conc 32.7 g/dL (32-36); Mean Corpuscular Hgb 29.4 pg (27.0-32.0); Mean Corpuscular Volume 89.7 fL (80-94); Mean Platelet Vol. 12.9 fl (6.2-12.0); Monocyte% 7.8 % (0-10); NRBC Flagged by Analyzer 0 % (0-5); Neutrophil # 7.31 X10^3/uL (2.7-7.7); Neutrophil % 71.5 % (47-70); Platelet Count 176 K/mm3 (150-450); RBC Distribution Width CV 13.6 % (11.6-14.6); RBC Distribution Width SD 44.6 fl (35.1-43.9); Red Blood Count 4.39 M/mm3 (4.6-6.2); White Blood Count 10.2 K/mm3 (4.4-11.0)
[2020-06-20 06:33] LABS: Anion Gap 6 (5-15); BUN 21 mg/dL (7-18); BUN/Creat Ratio 33.4 RATIO (10-20); Calcium,Total 8.3 mg/dL (8.5-10.1); Chloride 108 mmol/L (98-107); Creatinine, Serum 0.63 mg/dL (0.70-1.30); EST Glomerular Filtration Rate 137 mL/min (>60); Est Glom Filt Rate - Afr Amer 166 mL/min (>60); Estimated Creatinine Clearance 112.21 ml/min; Glucose 102 mg/dL (74-106); Sodium Level 137 mmol/L (136-145)
[2020-06-20] MEDS: Budesonide Respules 0.5 MG/2 ML AMPUL.NEB. INHALATION (07:05)
[2020-06-20] MEDS: 0.9% Saline Lock 10 ML Syringe IV (08:21)
[2020-06-20] MEDS: Aspirin E.C. 81 MG Tablet PO (08:26)
[2020-06-20] MEDS: Losartan Potassium 50 MG Tablet PO (08:26)
[2020-06-20] MEDS: hydroCHLOROthiazide 12.5mg 12.5 MG PO (08:26)
--- NOTE | 2020-06-20 08:47 | DCINST_ITS ---
Discharge Diet: No Restrictions Discharge Activity: May Not Drive May resume sexual activity in: 2 weeks Call your doctor if your incision/area has: Continuous Slow Oozing, Sudden Increased Bleeding, Increased Pain/ Swelling, Increased Redness, Foul Smelling Discharge, Swelling at the incision site Call your doctor if you observe: Fever of 101 or Higher, Shortness of breath, Dizziness, Fainting spells, Swelling in the ankles, Chest pain, Prolonged hiccoughing, Increased palpitations (irregular heartbeat) Suture Line Care: Avoid Pulling/Pushing, Avoid Pinching/Bending Cleanse incision/area with: Keep Dressing Clean & Dry Additional Dressing/Incision Instructions:: When dressing is removed, wash and dry incision. Keep covered with a light bandage if it is rubbing against your cl othing. Do not cover the incision with an airtight bandage. Change the bandage daily. Do not remove steri strips. The strips will fall off on their own. Additional Instructions: Signs and Symptoms to Report to Your Doctor at Once - call your doctor's office or Doctor's Registry ([phone]) Call [phone] or go to the nearest Emergency Department if you feel you need urgent care. *Infection (fever, increased redness or swelling at the incision site, drainage from the incision increased pain at the pacemaker site) *Shortness of breath *Dizziness *Fainting spells *Swelling in the ankles *Chest pain *Prolonged hiccoughing *Increased palpitaitons (irregular heartbeat) Medications: Take your pain medication as directed. Refer to your discharge instruction sheet for a list of medications you are to take. Allergies/Adverse Reactions: Allergies cephalexin [From Keflex] Allergy (Verified 06/18/20 12:15) Hives Medications to take at Discharge Acetaminophen [Tylenol Extra Strength] 1,000 mg PO DAILY PRN PRN 06/18/20 Albuterol Sulfate [Albuterol Sulfate HFA] 1 - 2 puff IH Q4H PRN PRN 06/18/20 Atorvastatin Calcium [Lipitor] 10 mg PO DAILY 06/18/20 Bifidobacterium Infantis [Align] 4 mg PO DAILY 06/18/20 Fluticasone 0.05% [Flonase Nasal [place]] 2 spray NASAL DAILY PRN PRN 06/18/20 Hydrochlorothiazide [Hctz] 12.5 mg PO DAILY 06/18/20 Loratadine 10 mg PO DAILY 06/18/20 Losartan Potassium [Cozaar] 50 mg PO DAILY 06/18/20 Mometasone Furoate [Asmanex 110 mcg Twisthaler] 1 puff IH DAILY 06/18/20 Primary Care Physician: Ras Alberts MD [Primary Care Provider] - Test Results: Test results from this visit will be discussed in further detail at your follow- up appointment, if applicable. When: In the pacemaker clinic next week Proposed Discharge Date: 06/20/20
--- NOTE | 2020-06-20 09:01 | PCM.DC ---
- Discharge Diagnoses Current Active Problems: Current Active and Chronic Problems Bradycardia (Acute) Hypertension (Chronic) Sleep apnea (Chronic) Conduction disorder of the heart (Acute) You will use the following diet at home:: Cardiac Your food should be the consistency of: Regular Discharge Activity: May Not Drive May resume sexual activity in: 2 weeks Weight Bearing Status: Weight bearing as tolerated Call your doctor if your incision/area has: Continuous Slow Oozing, Sudden Increased Bleeding, Increased Pain/ Swelling, Increased Redness, Foul Smelling Discharge, Swelling at the incision site Call your doctor if you observe: Fever of 101 or Higher, Shortness of breath, Dizziness, Fainting spells, Swelling in the ankles, Chest pain, Prolonged hiccoughing, Increased palpitations (irregular heartbeat) Suture Line Care: Avoid Pulling/Pushing, Avoid Pinching/Bending Cleanse incision/area with: Keep Dressing Clean & Dry Additional Dressing/Incision Instructions:: When dressing is removed, wash and dry incision. Keep covered with a light bandage if it is rubbing against your clothing. Do not cover the incision with an airtight bandage. Change the bandage daily. Do not remove steri strips. The strips will fall off on their own. Allergies/Adverse Reactions: Allergies cephalexin [From Keflex] Allergy (Verified 06/18/20 12:15) Hives Medications to take at Discharge Acetaminophen [Tylenol] 1,000 mg PO DAILY PRN PRN 06/18/20 Albuterol Sulfate [Albuterol Sulfate HFA] 1 - 2 puff IH Q4H PRN PRN 06/18/20 Atorvastatin Calcium [Lipitor] 10 mg PO DAILY 06/18/20 Bifidobacterium Infantis [Align] 4 mg PO DAILY 06/18/20 Fluticasone 0.05% [Flonase Nasal [place]] 2 spray NASAL DAILY PRN PRN 06/18/20 Hydrochlorothiazide [Hctz] 12.5 mg PO DAILY 06/18/20 Loratadine 10 mg PO DAILY 06/18/20 Losartan Potassium [Cozaar] 50 mg PO DAILY 06/18/20 Mometasone Furoate [Asmanex 110 mcg Twisthaler] 1 puff IH DAILY 06/18/20 Aspirin E.C. [Ecotrin] 81 mg PO DAILY@0800 #90 tab 06/20/20 The following prescriptions were given: Aspirin E.C. [Ecotrin] 81 mg PO DAILY@0800 #90 tab Transmission Status: Pending to [employer] #30 Primary Care Physician: Ras Alberts MD [Primary Care Provider] - Please follow up with your Primary Care Physician in: 2 WEEKS. Test Results: Test results from this visit will be discussed in further detail at your follow-up appointment, if applicable. When: In the pacemaker clinic next week Proposed Discharge Date: 06/20/20
--- NOTE | 2020-06-20 09:53 | PCM.PN.CARD ---
Subjectve: The patient is status post diagnostic cardiac catheterization and status post permanent pacemaker placement. Overall he states he is feeling better/well. He has no new acute complaints. Objective: Vital Signs Temp Pulse Resp BP Pulse Ox 97.7 F L 91 18 142/86 H 95 06/20/20 05:16 06/20/20 08:15 06/20/20 07:05 06/20/20 08:15 06/20/20 05:16 Oxygen Delivery Method Room Air Weight: 241 lb Body Mass Index (BMI) 37.7 Intake and Output for Last 24 Hours 06/18/20 06/19/20 06/20/20 23:59 23:59 23:59 Intake Total 480 / 600 1921.00 / 1921.00 758.75 / 758.75 Output Total 550 / 550 Balance 480 / 600 1921.00 / 1921.00 208.75 / 208.75 General: Awake, Alert, Oriented x 3, Cooperative, No Acute Distress HEENT: Atraumatic, Normocephalic, PERRL, EOMI, Sclera Non Icteric Neck: Supple, Good ROM, No JVD Chest Wall: Left Pectoral Incision, - - Surgical bandage: Dry Lungs: Clear to auscultation Cardiovascular: Regular Rhythm, Premature Ectopic Beats, Normal S1, Normal S2 Abdomen: Bowel Sounds Present, Soft Extremities: No edema Neurological: No Focal Motor or Sensory Deficit Psych/Mental Status: Appropriate 06/20/20 05:38: WBC 10.2, RBC 4.39 L, Hgb 12.9 L, Hct 39.4 L, MCV 89.7, MCH 29.4, MCHC 32.7, Plt Count 176, MPV 12.9 H, Immature Gran % (Auto) 0.400, Neut % (Auto) 71.5 H, Lymph % (Auto) 13.3 L, [place] % (Auto) 7.8, Eos % (Auto) 6.5 H, Baso % (Auto) 0.5, Absolute Neuts (auto) 7.3, Nucleated RBC % 0 06/20/20 05:38: Sodium 137, Potassium 4.0, Chloride 108 H, Carbon Dioxide 23.0, Anion Gap 6, BUN 21 H, Creatinine 0.63 L, Est GFR (MDRD) Af Amer 166, Est GFR (MDRD) Non-Af 137, BUN/Creatinine Ratio 33.4 H, Glucose 102, Calcium 8.3 L Rhythm: EKG: ECHO: Stress Test: Cardiac Cath: PCI: CT Surgery: Holter monitor: EPS: PPM: CXR: Chest CT Scan: Medical Necessity - Tobacco Use Smoking Status: Never smoker Tobacco Use: Non-smoker Assessment/Plan 1. Conduction system disorder The patient does have findings compatible with an underlying conduction system disorder with findings compatible with not only first-degree AV block but also 2-1 AV block and 3-1 AV block as well as evidence of underlying cardiac ectopy with ventricular ectopy with PVCs and ventricular couplets. The etiology is uncertain at this time although there is a concern if the patient does have obstructive sleep apnea this may be a contributing factor. The patient has undergone further evaluation with diagnostic cardiac catheterization. He did not appear to have angiographically significant appearing CAD. He is avoiding any rate limiting medications at this time. He is also now status post permanent pacemaker placement. His cardiac telemetry demonstrates that he is utilizing the ventricular aspect of his pacemaker. He is undergone post pacemaker insertion evaluation by Dr. Cabello and the [facility] pacemaker nurse. It appears that he is recuperating without obvious adverse event and his pacemaker is functioning appropriately. 2. Hypertension He does have history of hypertension. He will need to continue medical management deemed appropriate. At the present time this would include non-rate limiting therapy. 3. Sleep apnea He has presented with a history compatible with sleep apnea. He is pending further formal evaluation by his screening unit registered nurse. For all, at the present time, the tentative plan is for the patient to be released home for continued future outpatient cardiovascular follow-up. Comment: The patient's case has been discussed the patient, his spouse, Dr. Reyes, and Dr. Cabello. This note was generated using a voice recognition system and there may be incorrect words, spelling or punctuation that were not noted when reviewing the office note prior to saving.
--- NOTE | 2020-06-20 11:46 | PCM.DC.SUM ---
Discharge Date and Diagnosis Date of Admission: 06/18/20 Date of Discharge: 06/20/20 - Primary Discharge Diagnosis Acute Problems: #1 Mobitz type II second-degree AV block. #2 severe bradycardia. #3 status post pacemaker placement. - Secondary Discharge Diagnosis Chronic Problems: Chronic Problems Hypertension (Chronic) Sleep apnea (Chronic) Hospital Course and Treatment Imaging Results: 06/20/20 05:55 Chest 3 View [RAD] Routine Clinical Impression(s) from Imaging Studies Chest X-Ray 06/18/20 12:35 IMPRESSION: No acute abnormality is seen. Electronically Signed: Duarte Kobe, at 13:04 EDT , Service support , Chest X-Ray 06/20/20 05:55 IMPRESSION: No acute cardiopulmonary abnormality. at 0744 Reported and signed by: Angela Cruz MD Electronically Signed: Angela Cruz MD at 7:44 EDT Tel , Service support , Dr. Licea, Dr. Cabello, cardiology. Procedures: 2-D Echocardiogram, Cardiac catheterization, EKG, - - Pacemaker placement. Summary of Care Provided: Patient seen and examined on the day of discharge and appeared to be stable to be discharged home. He denied chest pain or shortness of breath. No dizziness or lightheadedness. Site of the pacemaker is clean and dry. Repeat chest x-ray showed no pneumothorax. Vital signs are stable. The patient is a 65 year old M presented to the emergency room because of irregular heartbeats and he was found to have severe bradycardia with heart rate down to 30s. He was diagnosed with conduction system disorder and he has been going into 2-1 AV block and 3-1 AV block. His EKG revealed no acute segment changes. Troponin was negative. Serum electrolytes including serum potassium, magnesium and calcium were normal. TSH was normal. Patient had no history of cardiac disease. His routine blood work was unremarkable. Initial chest x-ray showed no acute infiltrate or consolidation. Cardiology consulted and recommended 2D echocardiogram and cardiac catheterization. 2D echocardiogram revealed ejection fraction of 60%, no significant valvular heart disease and no wall motion abnormalities. Patient underwent cardiac catheterization that revealed angiographically normal coronary arteries with mild luminal irregularities in LAD, left circumflex and RCA, RCA revealed 25% eccentric stenosis. Decision was made for placement of permanent pacemaker for Mobitz type II second-degree AV block. Dr. Cabello performed the procedure, permanent pacemaker placed without complications. Heart rate stabilized as well as blood pressure. Patient had no more symptoms. Repeat chest x-ray after the pacemaker placement showed no acute findings, no pneumothorax. Patient discharged home in a stable medical condition, discharged on his previous home medications without any changes, started on aspirin, plan to follow-up with the pacer clinic next week, recommended follow-up with PCP in 2 weeks. - Physical Exam Vitals/I&O's: Vital Signs Temp Pulse Resp BP Pulse Ox 98.5 F 91 16 164/87 H 95 06/20/20 10:29 06/20/20 10:29 06/20/20 10:29 06/20/20 10:29 06/20/20 10:29 Oxygen Delivery Method Room Air Weight: 241 lb Body Mass Index (BMI) 37.7 Intake and Output for Last 24 Hours 06/18/20 06/19/20 06/20/20 23:59 23:59 23:59 Intake Total 480 / 600 1921.00 / 1921.00 938.75 / 938.75 Output Total 550 / 550 Balance 480 / 600 1921.00 / 1921.00 388.75 / 388.75 General: Alert, Oriented x3, Cooperative, No apparent distress HEENT: Atraumatic, PERRLA, EOMI, Normocephalic Oral: Moist Mucosa, No Gingival or Mucosal Lesions/ Ulcerations Neck: Supple, No JVD, Negative Carotid Bruits, Trachea Midline, Thyroid Normal Size and Texture Lungs: Clear to auscultation, Normal air movement, No rhonchi, No wheeze, No rales Cardiovascular: Regular rate, Regular Rhythm, Normal S1, Normal S2, PMI Normal Abdomen: Bowel Sounds Present, Soft, Non Tender, Non-Distended, No Hepato-splenomegaly Extremities: No clubbing, No cyanosis, No edema Skin: No rashes, No breakdown Lymphatic: No Cervical, Supraclavicular, or Inguinal Adenopathy Neurological: Cranial nerves II-XII grossly intact, Neuro grossly intact Psych/Mental Status: Normal Affect, Appropriate Laboratory Results 06/19/20 09:20: MRSA (PCR) Negative 06/20/20 05:38: WBC 10.2, RBC 4.39 L, Hgb 12.9 L, Hct 39.4 L, MCV 89.7, MCH 29.4, MCHC 32.7, RDW Std Deviation 44.6 H, RDW Coeff of Karyn 13.6, Plt Count 176, MPV 12.9 H, Immature Gran % (Auto) 0.400, Neut % (Auto) 71.5 H, Lymph % (Auto) 13.3 L, [place] % (Auto) 7.8, Eos % (Auto) 6.5 H, Baso % (Auto) 0.5, Absolute Neuts (auto) 7.3, Absolute Lymphs (auto) 1.36, Nucleated RBC % 0 06/20/20 05:38: Sodium 137, Potassium 4.0, Chloride 108 H, Carbon Dioxide 23.0, Anion Gap 6, BUN 21 H, Creatinine 0.63 L, Estim Creat Clear Calc 112.21, Est GFR (MDRD) Af Amer 166, Est GFR (MDRD) Non-Af 137, BUN/Creatinine Ratio 33.4 H, Glucose 102, Calcium 8.3 L Discharge Diet: No Restrictions Discharge Activity: May Not Drive May resume sexual activity in: 2 weeks Weight Bearing Status: Weight bearing as tolerated Call your doctor if your incision/area has: Continuous Slow Oozing, Sudden Increased Bleeding, Increased Pain/ Swelling, Increased Redness, Foul Smelling Discharge, Swelling at the incision site Call your doctor if you observe: Fever of 101 or Higher, Shortness of breath, Dizziness, Fainting spells, Swelling in the ankles, Chest pain, Prolonged hiccoughing, Increased palpitations (irregular heartbeat) Suture Line Care: Avoid Pulling/Pushing, Avoid Pinching/Bending Cleanse incision/area with: Keep Dressing Clean & Dry Additional Dressing/Incision Instructions:: When dressing is removed, wash and dry incision. Keep covered with a light bandage if it is rubbing against your clothing. Do not cover the incision with an airtight bandage. Change the bandage daily. Do not remove steri strips. The strips will fall off on their own. Home Medications: Medications to take at Discharge Acetaminophen [Tylenol] 1,000 mg PO DAILY PRN PRN 06/18/20 Albuterol Sulfate [Albuterol Sulfate HFA] 1 - 2 puff IH Q4H PRN PRN 06/18/20 Atorvastatin Calcium [Lipitor] 10 mg PO DAILY 06/18/20 Bifidobacterium Infantis [Align] 4 mg PO DAILY 06/18/20 Fluticasone 0.05% [Flonase Nasal [place]] 2 spray NASAL DAILY PRN PRN 06/18/20 Hydrochlorothiazide [Hctz] 12.5 mg PO DAILY 06/18/20 Loratadine 10 mg PO DAILY 06/18/20 Losartan Potassium [Cozaar] 50 mg PO DAILY 06/18/20 Mometasone Furoate [Asmanex 110 mcg Twisthaler] 1 puff IH DAILY 06/18/20 Aspirin E.C. [Ecotrin] 81 mg PO DAILY@0800 #90 tab 06/20/20 Following Prescriptions Were Given to Patient: Aspirin E.C. [Ecotrin] 81 mg PO DAILY@0800 #90 tab Transmission Status: Received by [employer] [id number] Primary Care Physician: Ras Alberts MD [Primary Care Provider] - Please follow up with your Primary Care Physician in: 2 WEEKS. When: In the pacemaker clinic next week Additional Instructions: Signs and Symptoms to Report to Your Doctor at Once - call your doctor's office or Doctor's Registry ([phone]) Call 911 or go to the nearest Emergency Department if you feel you need urgent care. *Infection (fever, increased redness or swelling at the incision site, drainage from the incision increased pain at the pacemaker site) *Shortness of breath *Dizziness *Fainting spells *Swelling in the ankles *Chest pain *Prolonged hiccoughing *Increased palpitaitons (irregular heartbeat) Medications: Take your pain medication as directed. Refer to your discharge instruction sheet for a list of medications you are to take. Disposition: Home Minutes spent on discharge:: 32 Patient Condition:: Stable Medical Necessity - Tobacco Use Smoking Status: Never smoker Tobacco Use: Non-smoker Meaningful Use Info Meaningful Use Diagnoses (Choose all that apply): None applicable Inpatient E&M: 63528 Disch Hosp
--- NOTE | 2020-06-20 12:42 | PHA.DC.MC ---
Pharmacy Service has performed discharge medication reconciliation and counseling for this patient. The patient was counseled on the following discharge medications and changes in medications for homegoing were reviewed. 1. ASPIRIN The Reason for Use, instructions for use, and potential side effects were reviewed for all new medications. The patient's questions regarding all of their medications were answered. The patient was able to verbally demonstrate an understanding of their discharge medications. Home Medications Acetaminophen [Tylenol] 1,000 mg PO DAILY PRN PRN 06/18/20 Albuterol Sulfate [Albuterol Sulfate HFA] 1 - 2 puff IH Q4H PRN PRN 06/18/20 Atorvastatin Calcium [Lipitor] 10 mg PO DAILY 06/18/20 Bifidobacterium Infantis [Align] 4 mg PO DAILY 06/18/20 Fluticasone 0.05% [Flonase Nasal [place]] 2 spray NASAL DAILY PRN PRN 06/18/20 Hydrochlorothiazide [Hctz] 12.5 mg PO DAILY 06/18/20 Loratadine 10 mg PO DAILY 06/18/20 Losartan Potassium [Cozaar] 50 mg PO DAILY 06/18/20 Mometasone Furoate [Asmanex 110 mcg Twisthaler] 1 puff IH DAILY 06/18/20 Aspirin E.C. [Ecotrin] 81 mg PO DAILY@0800 #90 tab 06/20/20 The patient's discharge medication list was reviewed for discrepancies and discrepancies were resolved.
== END 2020-06-20 11:05 | disposition home or self-care (01) | DRG 259 ==
LOC: ED 12:58 → PCU 13:56
PROVIDERS: Internal Medicine Cardiovascular Disease; Admitting Provider Internal Medicine; Emergency Provider Emergency Medicine; PCP Family Medicine; Visit Provider Hospitalist
DX: I44.1 Atrioventricular block, second degree (principal); I25.118 Atherosclerotic heart disease of native coronary artery with other forms of angina pectoris; R00.1 Bradycardia, unspecified; I10 Essential (primary) hypertension; G47.33 Obstructive sleep apnea (adult) (pediatric); E78.5 Hyperlipidemia, unspecified; J45.909 Unspecified asthma, uncomplicated; Z79.51 Long term (current) use of inhaled steroids; Z79.899 Other long term (current) drug therapy; Z82.49 Family history of ischemic heart disease and other diseases of the circulatory system
CPT/HCPCS: 33208; 36415; 71045; 71047; 80048; 80053; 83735; 84443; 84484; 85025; 85610; 85730; 87641; 93005; 93306; 93454; 94640; 99152; 99153; 99284; J7030; J7050; Q9957; Q9967; A4216; C1769; C1894; C8929

== ENCOUNTER 2021-01-28 11:56 | Outpatient (RCR) | payer BC, SELFPAY ==
[2020-10-03 14:19] VITALS: BMI 36.3
[2021-01-28] MEDS: COVID-19 VACC, MRNA(PFIZER)/PF 30 MCG/0.3 ML SYRINGE IM (16:09)
[2021-02-18] MEDS: COVID-19 VACC, MRNA(PFIZER)/PF 30 MCG/0.3 ML SYRINGE IM (16:14)
== END 2021-01-28 23:59 ==
LOC: IMMUN 11:56
PROVIDERS: PCP Family Medicine; Visit Provider Family Medicine
DX: Z23 Encounter for immunization (principal)
CPT/HCPCS: 0001A; 0002A; 91300

== ENCOUNTER → 2021-06-25 08:11 | Outpatient (CLI) | payer BC, SELFPAY ==
[2020-10-03 14:19] VITALS: BMI 36.3
[2021-06-25 10:42] LABS: ALB/GLOB Ratio 0.8 RATIO (0.9-2.4); AST(SGOT) 31 U/L (15-37); Alanine Aminotransfer ALT/SGPT 36 U/L (16-61); Albumin, Serum 3.4 g/dL (3.2-5.0); Alkaline Phosphatase 103 U/L (45-117); Anion Gap 9 (5-15); BUN 19 mg/dL (7-18); BUN/Creat Ratio 23.8 RATIO (10-20); Calcium,Total 8.7 mg/dL (8.5-10.1); Chloride 103 mmol/L (98-107); Cholesterol 149 mg/dL (200); EST Glomerular Filtration Rate 104 mL/min (>60); Est Glom Filt Rate - Afr Amer 126 mL/min (>60); Globulin 4.1 g/dL (2.2-4.2); Glucose 107 mg/dL (74-106); High Density Lipoprotein 48 mg/dL; Potassium 3.7 mmol/L (3.5-5.1); Protein, Total 7.5 g/dL (6.4-8.2); Sodium Level 135 mmol/L (136-145); Triglycerides 81 mg/dL; Very Low Density Lipoprotein 16 mg/dL (5-40)
[2021-06-26 15:51] LABS: PSA, Free 1.02 ng/mL; PSA, Total Ultrasensitive 5.1 ng/mL (0.0-4.0)
== END ==
PROVIDERS: PCP Family Medicine; Referring Provider Family Medicine; Visit Provider Family Medicine
DX: E78.5 Hyperlipidemia, unspecified (principal); R97.20 Elevated prostate specific antigen [PSA]
CPT/HCPCS: 36415; 80053; 80061; 84153; 84154

== ENCOUNTER 2022-01-28 10:14 | Outpatient (CLI) | payer BC, SELFPAY ==
[2022-01-28 12:41] LABS: PSA,Total- Diagnostic 7.41 ng/mL (0.0-4.0)
== END 2022-01-28 23:59 | disposition home or self-care (01) ==
LOC: MFPLAB 10:14
PROVIDERS: PCP Family Medicine; Referring Provider Family Medicine; Visit Provider Family Medicine
DX: R97.20 Elevated prostate specific antigen [PSA] (principal)
CPT/HCPCS: 36415; 84153

== ENCOUNTER → 2022-04-16 | Outpatient (CLI) | payer BC, SELFPAY ==
[2022-04-16 15:54] LABS: Color, Urine Yellow (Yellow); Glucose, Dipstick Normal (Normal); Ketone-Dipstick Negative (Negative); Leukocyte Esterase-Dipstick 100 /ul (Negative); Nitrite-Dipstick Negative (Negative); Occult Blood-Urine 150 /ul (Negative); Protein-Dipstick Negative (Negative); Urine Bilirubin Dipstick Negative (Negative); Urine Clarity Clear (Clear); Urine Urobilinogen Normal (Normal)
== END | disposition home or self-care (01) ==
LOC: MFPLAB 11:51
PROVIDERS: PCP Family Medicine; Visit Provider Family Medicine
DX: N41.0 Acute prostatitis (principal)
CPT/HCPCS: 81002; 87086

== ENCOUNTER → 2022-04-30 | Outpatient (CLI) | payer BC, SELFPAY ==
[2022-04-30 10:58] LABS: Red Blood Cells-Urine 0 SEEN /hpf (0-5)
[2022-04-30 12:13] LABS: Color, Urine Yellow (Yellow); Glucose, Dipstick Normal (Normal); Ketone-Dipstick 5 mg/dl (Negative); Leukocyte Esterase-Dipstick 25 /ul (Negative); Nitrite-Dipstick Negative (Negative); Occult Blood-Urine Negative /ul (Negative); Protein-Dipstick 15 mg/dl (Negative); Specific Gravity, Urine 1.025 (1.002-1.030); Urine Bilirubin Dipstick Negative (Negative); Urine Clarity Sl. Cloudy (Clear); Urine Urobilinogen Normal (Normal)
[2022-04-30 12:19] LABS: Bacteria 1+ /hpf (None Seen); Mucous, Urine 1+ /hpf (<or=2+); Squamous Epithelial Cells - UA 0-5 SEEN /hpf (0-5); White Blood Cells 0-5 SEEN /hpf (0-5)
== END | disposition home or self-care (01) ==
LOC: LABSPEC 10:57
PROVIDERS: PCP Family Medicine; Referring Provider Family Medicine; Visit Provider Family Medicine
DX: R97.20 Elevated prostate specific antigen [PSA] (principal)
CPT/HCPCS: 81001

== ENCOUNTER → 2022-05-15 | Outpatient (CLI) | payer SELFPAY, BC ==
--- NOTE | 2022-05-15 07:17 | CT_ITS ---
STUDY: CT ABDOMEN AND PELVIS WITH CONTRAST REASON FOR EXAM: Male, 66 years old. One year history of lower abdominal pain. RADIATION DOSAGE (If Supplied By Facility): CTDIvol = ( 16.74 ) mGy, DLP = ( 1191.60 ) mGycm TECHNIQUE: Transaxial images were obtained from the dome of the diaphragm to the symphysis pubis without oral contrast. IV 100mL Isovue-300 was administered. Sagittal and coronal images were reconstructed. Individualized dose optimization techniques were used for this CT. COMPARISON: None. FINDINGS: The visualized lung bases are unremarkable. A dual-chamber pacemaker device is seen. Coronary artery calcification. Normal liver. Normal gallbladder and extrahepatic biliary system. Normal spleen. Normal pancreas. Normal bilateral adrenal glands. Normal right kidney. Normal left kidney. Moderate sized hiatal hernia. Normal small intestine. There are multiple colonic diverticula consistent with diverticulosis. The appendix is visualized and appears normal. There is scattered atherosclerotic calcification of the abdominal aorta, without a demonstrated aneurysm. Normal inferior vena cava. Normal retroperitoneum. Normal urinary bladder. There is enlargement of the prostate gland. The prostate measures 4.8 cm x 6.6 cm. Normal abdominal wall. There are diffuse degenerative changes of the visualized lumbar spine. CT/Abdomen/Pelvis WITH Contrast IMPRESSION: Moderate sized hiatal hernia. Sigmoid diverticulosis. Coronary artery calcification. Electronically Signed: Duarte Bullock MD at 8:38 EDT ,
[2022-05-15 07:30] LABS: CREATININE FINGERSTICK < 0.9 mg/dL (0.70-1.30); EGFR FINGERSTICK > 60.0000 mL/min (>60)
== END | disposition home or self-care (01) ==
PROVIDERS: PCP Family Medicine; Referring Provider Family Medicine; Visit Provider Family Medicine
DX: K44.9 Diaphragmatic hernia without obstruction or gangrene (principal); K57.30 Diverticulosis of large intestine without perforation or abscess without bleeding; R10.9 Unspecified abdominal pain
CPT/HCPCS: 74177; Q9967

== ENCOUNTER → 2022-10-29 | Outpatient (CLI) | payer BC, SELFPAY ==
[2022-10-29 11:26] LABS: ALB/GLOB Ratio 0.9 RATIO (0.9-2.4); AST(SGOT) 25 U/L (15-37); Alanine Aminotransfer ALT/SGPT 29 U/L (16-61); Albumin, Serum 3.6 g/dL (3.2-5.0); Alkaline Phosphatase 105 U/L (45-117); Anion Gap 10 (5-15); BUN 22 mg/dL (7-18); BUN/Creat Ratio 29.1 RATIO (10-20); Calcium,Total 9.2 mg/dL (8.5-10.1); Chloride 102 mmol/L (98-107); Cholesterol 155 mg/dL (200); Creatinine, Serum 0.76 mg/dL (0.70-1.30); EST Glomerular Filtration Rate 110 mL/min (>60); Est Glom Filt Rate - Afr Amer 133 mL/min (>60); Glucose 116 mg/dL (74-106); High Density Lipoprotein 52 mg/dL; PSA,Total - Annual Screen 3.74 ng/mL (0.00-4.00); Potassium 4.2 mmol/L (3.5-5.1); Protein, Total 7.6 g/dL (6.4-8.2); Sodium Level 137 mmol/L (136-145); Triglycerides 86 mg/dL; Very Low Density Lipoprotein 17 mg/dL (5-40)
== END | disposition home or self-care (01) ==
LOC: MFPLAB 08:34
PROVIDERS: PCP Family Medicine; Referring Provider Family Medicine; Visit Provider Family Medicine
DX: R73.01 Impaired fasting glucose (principal); R97.20 Elevated prostate specific antigen [PSA]
CPT/HCPCS: 36415; 80053; 80061; 84153; G0103

== ENCOUNTER → 2023-09-06 | Outpatient (CLI) | payer BC, SELFPAY ==
[2023-09-06 11:08] LABS: Anion Gap 6 (5-15); BUN 19 mg/dL (7-18); BUN/Creat Ratio 20.3 RATIO (10-20); Calcium,Total 9.2 mg/dL (8.5-10.1); Chloride 103 mmol/L (98-107); Cholesterol 142 mg/dL (200); Creatinine, Serum 0.94 mg/dL (0.70-1.30); EST Glomerular Filtration Rate 86 mL/min (>60); Est Glom Filt Rate - Afr Amer 103 mL/min (>60); Glucose 141 mg/dL (74-106); High Density Lipoprotein 50 mg/dL; PSA,Total- Diagnostic 3.32 ng/mL (0.0-4.0); Potassium 4.2 mmol/L (3.5-5.1); Sodium Level 136 mmol/L (136-145); Triglycerides 109 mg/dL; Very Low Density Lipoprotein 22 mg/dL (5-40)
== END | disposition home or self-care (01) ==
LOC: MFPLAB 08:41
PROVIDERS: PCP Family Medicine; Visit Provider Family Medicine
DX: R97.20 Elevated prostate specific antigen [PSA] (principal); R73.01 Impaired fasting glucose
CPT/HCPCS: 36415; 80048; 80061; 84153

== ENCOUNTER → 2023-10-18 | Outpatient (CLI) | payer BC, SELFPAY ==
--- NOTE | 2023-10-18 14:04 | CT_ITS ---
STUDY: CT FACIAL BONES WITHOUT CONTRAST REASON FOR EXAM: Male, 68 years old. NASAL POLYPS RADIATION DOSAGE (If Supplied By Facility): CTDIvol = ( 33.06 ) mGy, DLP = ( 862.77 ) mGycm TECHNIQUE: The patient was scanned in a multi detector CT scanner. Sagittal and coronal images were reconstructed. Individualized dose optimization techniques were used for this CT. COMPARISON: None. FINDINGS: Normal soft tissue structures. Normal orbital carty and orbital contents. Normal nasal bones and anterior nasal spine. Normal facial bones. There is no demonstrated fracture. Opacification of the maxillary sinuses bilaterally worse on the left side. Opacification of the ethmoid sinuses bilaterally worse on the left side. Prominence of the nasal fossa suggestive of possible nasal polyposis. Mucosal thickening of the sphenoid sinus bilaterally. Partial opacification of the frontal sinuses. There is compromise of the ostiomeatal complexes bilaterally due to mucosal hypertrophy. CT/Sinus/Facial Bone IMPRESSION: Pansinusitis. Nasal polyposis. Electronically Signed: Duarte Bullock MD at 15:23 EST ,
== END | disposition home or self-care (01) ==
LOC: CT 13:55
PROVIDERS: PCP Family Medicine; Referring Provider Otolaryngology; Visit Provider Otolaryngology
DX: J33.0 Polyp of nasal cavity (principal)
CPT/HCPCS: 70486

== ENCOUNTER 2023-12-28 07:58 | Day surgery (SDC) | payer OTHER, SELFPAY ==
[2023-12-22 08:38] LABS: Hematocrit 40.5 % (40-54); Mean Corp Hgb Conc 32.1 g/dL (32-36); Mean Corpuscular Hgb 29.8 pg (27.0-32.0); Mean Corpuscular Volume 92.9 fL (80-94); Mean Platelet Vol. 12.8 fl (6.2-12.0); Platelet Count 164 K/mm3 (150-450); RBC Distribution Width CV 13.3 % (11.6-14.6); RBC Distribution Width SD 45.3 fl (35.1-43.9); Red Blood Count 4.36 M/mm3 (4.6-6.2); White Blood Count 11.2 K/mm3 (4.4-11.0)
[2023-12-22 08:48] LABS: Partial Thromboplast Time 28.5 Seconds (24.1-36.2); Prothrombin Time (Protime)PT. 12.7 SECONDS (11.7-14.9)
[2023-12-22 09:36] LABS: Anion Gap 2 (5-15); BUN 19 mg/dL (7-18); BUN/Creat Ratio 23.2 RATIO (10-20); Calcium,Total 9.2 mg/dL (8.5-10.1); Chloride 106 mmol/L (98-107); Creatinine, Serum 0.82 mg/dL (0.70-1.30); EST Glomerular Filtration Rate 100 mL/min (>60); Est Glom Filt Rate - Afr Amer 121 mL/min (>60); Glucose 144 mg/dL (74-106); Potassium 3.5 mmol/L (3.5-5.1); Sodium Level 136 mmol/L (136-145)
[2023-12-22 10:37] LABS: AST(SGOT) 22 U/L (15-37); Alanine Aminotransfer ALT/SGPT 31 U/L (16-61); Albumin, Serum 3.4 g/dL (3.2-5.0); Alkaline Phosphatase 82 U/L (45-117); Bilirubin, Direct 0.16 mg/dL (0.00-0.30); Protein, Total 7.4 g/dL (6.4-8.2)
[2023-12-28 08:28] VITALS: BP 143/83; PULSE 68; RESP 16; TEMP 36.8; O2SAT 99; BMI 38.9
--- OUTSIDE RECORDS SUMMARY | 2023-12-28 08:29 | XMS RPT_ITS | CCD ---
Author Name Unknown Address [address] [place] [address] Organization [facility] Results Test Name Value Interpretation Reference Range Facil ity Summary Purpose Family History No Family History Records Found Advance Directives No Advanced Directives Records Found Additional Source Comments (unrecognized sect ion and content) No Status Records Found INFORMATION SOURCE (unrecogn ized section and content) FOR RECORDS PERTAINING TO PATIENTS WHO ARE OR HAVE BEEN ENROLLED IN A CHEMICAL DEPENDENCY/SUBSTANCEABUSE PROGRAM, SOME INFORMATION MAY BE OMITTED. This clinical summary was aggregated from multiple sources. Caution should be exercised in using it in the provision of clinical care. This summary normalizes information from multiple sources, and as a consequence, information in this document may materially change the coding, format and clinical context of patient data. In addition, data may be omitted in some cases. CLINICAL DECISIONS SHOULD BE BASED ON THE PRIMARY CLINICAL RECORDS. Designer Material [facility]. provides no warranty or guarantee of the accuracy or completeness of information in this document.
[2023-12-28] MEDS: Lactated Ringers 1,000 ML 15 ML IV (08:34)
--- NOTE | 2023-12-28 09:40 | ETH_PTH ---
PATHOLOGY RESULTS PATIENT: HEVER [place] [facility] [id number] AGE/SX: 68/M ROOM: RE12/28/[address]: Dr. Wicho Briceño MD : 1955 BED: DIS: 12/28/2023 SPEC #: [id number] RECD: 12/28/23 13:44 STATUS: VERNA TYSON #: [id number] BIRDIE: 12/28/23 09:[address]: Wicho Briceño DEPT: SURGICAL PATHOLOGY RECD BY: Fidelina Wilburn ENTERED: 12/29/23 08:16 SP TYPE: ETH TISS OTHR DR: Dr. Wicho Alberts MD Tissues: Ethmoid sinus, NOS Ethmoid sinus, NOS Procedures: Decalcification bone/plaque Special Stain Group I Surgery Specimen Level IV GMS Stain (control) HEADER OPERATION: Functional endoscopic sinus surgery, Navigation PRE-OP DIAGNOSIS: Chronic sinusitis, nasal polyps TISSUE SUBMITTED: A - Right ethmoid contents, B - Left ethmoid contents MICROSCOPIC DIAGNOSIS A. Right ethmoid contents, curettings: Polypoid fragments of respiratory mucosa with chronic inflammation and focal acute inflammation. Negative for fungal organisms. See comment. B. Left ethmoid contents, curettings: Polypoid fragments of respiratory mucosa with chronic inflammation and focal acute inflammation. Negative for fungal organisms. See comment. AM:angelica 01/03/2024 COMMENT A & B. GMS stain with matched control was used in the evaluation of this case. MICROSCOPIC DESCRIPTION Slides are reviewed. GROSS DESCRIPTION A - Received in fixative is one container labeled with the patient's name and designated right ethmoid contents. The specimen consists of multiple irregular fragments of self-brown soft tissue mixed with possible fragment of bone that in aggregate measure 4.0 x 3.0 x 0.2 cm. The entire specimen is submitted in two cassettes after decalcification. B - Received in fixative is one container labeled with the patient's name and designated left ethmoid contents. The specimen consists of multiple irregular fragments of self-brown soft tissue mixed with possible fragment of bone that in aggregate measure 5.0 x 3.0 x 0.3 cm. The entire specimen is submitted in two cassettes after decalcification. / ZAIDA:angelica 12/29/2023 TC:2 CPT: 05675 x2, 72783 x2, 87711 x2
[2023-12-28] MEDS: Clindamycin 900 MG/50 ML BAG 75 MG IV (09:42)
[2023-12-28] MEDS: Oxymetazoline 0.05% 1 SPRAY SPRAY.BTL 15 SPRAY ×2 (10:31)
--- NOTE | 2023-12-28 12:00 | DCINST_ITS ---
Discharge Instructions Diet Discharge Diet: Light diet - advance as tolerated Dressing / Incision Call your doctor if your incision/area has: Sudden Increased Bleeding Additional Dressing/Incision Instructions:: nasal saline to both nostrils 5 times daily Follow Up Care Please Follow Up With: Wicho Briceño MD When: 1 week Test Results: Test results from this visit will be discussed in further detail at your follow- up appointment, if applicable. Discharge Plan Admission Attending Provider: Wicho Briceño Primary Care Provider: Rsa Alberts Discharge Orders/Prescriptions Prescriptions: No Action Asmanex HFA 200 mcg/actuation HFA aerosol inhaler 2 puff INHALATION DAILY PRN (Reason: SOB) tamsulosin 0.4 mg capsule 0.4 mg PO QHS finasteride 5 mg tablet 5 mg PO QHS meloxicam 15 mg tablet 15 mg PO DAILY PRN (Reason: pain (scale score 1-3)) losartan 50 MG tablet 50 mg PO DAILY atorvastatin 10 MG tablet 10 mg PO DAILY hydrochlorothiazide 25 MG tablet 12.5 mg PO DAILY albuterol sulfate 90 mcg/actuation HFA aerosol inhaler 1 - 2 puff IH Q4H PRN PRN (Reason: Asthma) aspirin 81 MG tablet 81 mg PO DAILY@0800 Qty: 90 0RF prednisone 10 mg tablet 30 mg PO DAILY Patient Comments: Take 3 tablet by mouth once a day doxycycline hyclate 100 mg tablet 100 mg PO BID Patient Comments: TAKE 1 TABLET BY MOUTH TWICE DAILY Referrals / Follow Up: Ras Alberts MD [Primary Care Provider] - Disposition Disposition (needs filled in before D/C Order can be placed): Home, Self Care
--- NOTE | 2023-12-28 12:01 | OP.PCM_ITS ---
Problems Associated Problem List Diagnoses (1) Chronic pansinusitis: (2) Sinusitis with nasal polyps: Report of Operation Date of Procedure: 12/28/23 Pre-Operative Diagnosis: 1. sinonasal polyposis 2. chronic pansinusitis Post-Operative Diagnosis: 1. sinonasal polyposis 2. chronic pansinusitis Surgery/Procedure Performed:: 1. endoscopic maxillary antrostomy with removal of contents, right and left 2. endoscopic total ethmoidecotmy, right and left 3. endoscopic sphenoidotomy with removal of contents, right and left 4. endoscopic frontal sinus exploration removal of contents, right and left 5. extensive removal of sinus polyps, right and left 6. CT guided image navigation Surgeon: Wicho Briceño Type of Anesthesia: General Description of Procedure: On the day of the procedure, after appropriate informed consent was obtained, the patient was brought to the operating room and placed in a supine position on the operating room table. The patient was placed under general endotracheal anesthesia by the anesthesiologist. The endotracheal tube was secured.? image guidance navigation was set up on the face and accuracy was confirmed.? the nose was injected with lidocaine/epinephrine and decongested with oxymetazoline- soaked pledgets. the zero degree endoscope was used to evaluate the nasal cavity.? the superior attachment of the right and left middle turbinate and uncinate processes were injected with lidocaine/epinephrine.? the left nasal cavity was evaluated.? the middle turbinate was medialized.? an extensive amount of occlusive polyps were removed from the middle meatus, sphenoethmoidal recess, frontal recess and residual ethmoid chambers. a revision maxillary antrostomy and uncinectomy were performed with a jc elevator and a fidel cut.? the antrostomy was widened with a back-biter.? purulent material and polyps were evacuated.? the ethmoid bulla was entered bluntly with the suction.? a revision total ethmoidectomy was performed with a curette and an upgoing blakesley.? this was taken superiorly to the skull base and laterally to the lamina.? a stankewicz maneuver was performed and no laminar defect was noted.? the natural sphenoid os was widened with the microdebrider and contents were evacuated.? fungus was removed from the sphenoethmoidal recess.? the frontal recess was explored and polyps were evacuated.? hemostasis was achieved with suction cautery; zahira was placed. the right nasal cavity was evaluated.? the middle turbinate was medialized.? an extensive amount of occlusive polyps were removed from the middle meatus, sphenoethmoidal recess, frontal recess and residual ethmoid chambers. a revision maxillary antrostomy and uncinectomy were performed with a jc elevator and a fidel cut.? the antrostomy was widened with a back-biter.? purulent material and polyps were evacuated.? the ethmoid bulla was entered bluntly with the suction.? a revision total ethmoidectomy was performed with a curette and an upgoing blakesley.? this was taken superiorly to the skull base and laterally to the lamina.? a stankewicz maneuver was performed and no laminar defect was noted.? the natural sphenoid os was widened with the microdebrider and contents were evacuated.? fungus and polyps were removed from the sphenoethmoidal recess.? the frontal recess was explored and polyps were evacuated.? hemostasis was achieved with suction cautery; zahira was placed. he was awoken from anesthesia and transferred to the PACU in stable condition.
[2023-12-28 12:05] VITALS: BP 133/82; BP 143/83; PULSE 79; RESP 16; TEMP 36.5; O2SAT 92
[2023-12-28 12:10] VITALS: BP 131/79; BP 143/83; PULSE 77; RESP 16; O2SAT 96
[2023-12-28 12:15] VITALS: BP 130/62; BP 143/83; PULSE 71; RESP 16; TEMP 36.2; O2SAT 93
[2023-12-28 12:47] VITALS: BP 143/83
--- NOTE | 2023-12-28 13:44 | SUR.PHASEII ---
PATIENT'S SCRIPT FROM [facility] RETAIL DELIVERED TO PT ROOM
== END 2023-12-28 13:44 | disposition home or self-care (01) ==
LOC: SDC 08:00 → AC 08:01
PROVIDERS: Anesthesiology; PCP Family Medicine; Referring Provider Otolaryngology; Visit Provider Otolaryngology
PROC: (CPT 31267; principal; 2023-12-28 09:20)
DX: J32.4 Chronic pansinusitis (principal); J33.8 Other polyp of sinus; I25.10 Atherosclerotic heart disease of native coronary artery without angina pectoris; I10 Essential (primary) hypertension; I44.1 Atrioventricular block, second degree; Z95.0 Presence of cardiac pacemaker; Z79.82 Long term (current) use of aspirin; Z79.899 Other long term (current) drug therapy
CPT/HCPCS: 31267; 31288; 31276; 30115; 00160; 36415; 80048; 80076; 85027; 85610; 85730; 88305; 88311; 88312; 93005; J7120; J2405

== ENCOUNTER → 2024-04-27 | Outpatient (CLI) | payer OTHER, SELFPAY | END | disposition home or self-care (01) | LOC: LABSPEC 15:04 | PROVIDERS: PCP Family Medicine; Referring Provider Otolaryngology; Visit Provider Otolaryngology | DX: J32.8 Other chronic sinusitis (principal) | CPT/HCPCS: 87070; 87205 ==

== ENCOUNTER → 2024-05-22 | Outpatient (CLI) | payer MEDICARE, SELFPAY ==
--- NOTE | 2024-05-22 09:06 | ECHOCS_ITS ---
Reason For Study: PACEMAKER Procedure This was a 2D Doppler, Color Flow transthoracic echocardiogram. The study was technically difficult. Contrast injection was performed. Exam performed in department. Left Ventricle Normal LV size. Mild to moderate segmental systolic dysfunction (see wall motion). The left ventricular ejection fraction is 40 %. [place] : Hypokinetic. Lateral [place] : Severely Hypokinetic. Septal [place] : Hypokinetic. Mid-anteroseptal : Mildly hypokinetic. The rest of the wall segments are normal. Right Ventricle Normal RV size. ICD or pacer leads identified within the right ventricle. Normal systolic function. Atria Normal left atrium. Normal right atrium. Mitral Valve Normal mitral valve. Mild (1+) eccentric mitral valve insufficiency. Tricuspid Valve Normal tricuspid valve. Mild (1+) tricuspid valve insufficiency. Pulmonary artery systolic pressure is 23 mmHg. Aortic Valve Trisinus/trileaflet aortic valve. Pulmonic Valve Normal pulmonic valve. Great Vessels Normal aortic root. The pulmonary artery is normal size. Normal inferior vena cava. Pericardium/Pleural No pericardial effusion. Medication 22 gauge I.V. with prn adaptor inserted into left arm. Diluted definity 2.5ml given slow IV push to enhance endocardial definition. MMode/2D Measurements & Calculations LVIDd: 5.9 cm IVSd: 1.1 cm LVOT diam: 2.3 cm LVIDs: 3.6 cm LVPWd: 1.0 cm RVDd: 4.1 cm FS: 39.2 % LVOT area: 4.1 cm2 Ao root diam: 3.1 cm LAV(MOD-bp): 52.9 ml LVAd ap4: 53.2 cm2 LAV(MOD-bp) Indexed: 24.6 ml/m2 LVLd ap4: 9.7 cm LAV(MOD-sp2): 59.0 ml EDV(MOD-sp4): 233.0 ml LAV(MOD-sp4): 50.2 ml EDV(sp4-el): 248.3 ml LVAs ap4: 42.0 cm2 LVLs ap4: 8.9 cm ESV(MOD-sp4): 154.0 ml ESV(sp4-el): 167.3 ml EF(MOD-sp4): 33.9 % EF(sp4-el): 32.6 % LVAd ap2: 47.2 cm2 SV(MOD-sp4): 78.9 ml SV(MOD-sp2): 70.5 ml LVLd ap2: 9.0 cm EDV(MOD-sp2): 190.0 ml EDV(sp2-el): 209.4 ml LVAs ap2: 36.2 cm2 LVLs ap2: 8.7 cm ESV(MOD-sp2): 119.5 ml ESV(sp2-el): 127.9 ml EF(MOD-sp2): 37.1 % SV(sp4-el): 80.9 ml LA dimension(2D): 4.4 cm LA A4 area: 18.1 cm2 RA A4 area: 11.3 cm2 TAPSE: 1.9 cm Doppler Measurements & Calculations MV A max tim: 90.4 cm/sec Lat Peak E' Tim: 7.3 cm/sec Med Peak E' Tim: 5.9 cm/sec Ao V2 max: 124.7 cm/sec LV V1 max: 90.6 cm/sec SV(LVOT): 81.1 ml Ao max P.2 mmHg LV V1 max P.3 mmHg Ao V2 mean: 84.5 cm/sec LV V1 mean P.8 mmHg Ao mean P.3 mmHg LV V1 mean: 62.0 cm/sec Ao V2 VTI: 25.6 cm LV V1 VTI: 19.8 cm AV (velocity ratio): 0.77 CHANNING(I,D): 3.2 cm2 CHANNING(V,D): 3.0 cm2 PA V2 max: 103.3 cm/sec PI end-d tim: 127.2 cm/sec TR max tim: 221.7 cm/sec PA max PG (full): 2.9 mmHg TR max P.7 mmHg ECHO/Echo Complete W/ Contrast Interpretation Summary Normal LV size. The left ventricular ejection fraction is 40 %. Mild to moderate segmental systolic dysfunction (see wall motion). Contrast injection was performed. Ordering Physician: Neil Russo Referring Physician: Wicho Alberts MD Performed By: Young, Jess, RDCS
== END | disposition home or self-care (01) ==
PROVIDERS: PCP Family Medicine; Referring Provider Nurse Practitioner Family; Visit Provider Nurse Practitioner Family
DX: I25.10 Atherosclerotic heart disease of native coronary artery without angina pectoris (principal); Z95.0 Presence of cardiac pacemaker; E78.5 Hyperlipidemia, unspecified; I10 Essential (primary) hypertension; G47.33 Obstructive sleep apnea (adult) (pediatric); I08.1 Rheumatic disorders of both mitral and tricuspid valves
CPT/HCPCS: 93306; Q9957; A4216; C8929

== ENCOUNTER → 2024-06-13 | Outpatient (CLI) | payer MEDICARE, SELFPAY ==
--- NOTE | 2024-06-13 09:22 | STRESSREP ---
Stress Test Report Exercise myocardial perfusion stress test. 69-year-old man with a history of permanent pacemaker implantation Stress protocol: Resting EKG demonstrates normal sinus rhythm with ventricular pacing at 77 bpm resting blood pressure is 132/88 mmHg. The patient exercised according to the regular Jmimy protocol for a total duration of 4 minutes and 31 seconds attaining a maximum heart rate of 144 bpm which was 94% of maximum predicted heart rate; the maximum workload was 7 metabolic equivalents. At rest there were no ST or T wave changes noted to suggest ischemia and at peak exercise upsloping ST changes only were noted which did not meet the criteria for ischemia. No clinical angina was noted the test was terminated due to the target heart rate being achieved/fatigue. The peak blood pressure was 172/88 mmHg. Rate-pressure product was 20,100. Myocardial perfusion protocol. 14.8 mCi of technetium 99m sestamibi was injected at rest. The patient exercised according to regular Jimmy protocol for total duration of 4-1/2 minutes and at peak exercise 44.6 mCi of technetium 99m sestamibi was injected stress images were obtained stress and rest images were reconstructed in comparing the short axis vertical long and horizontal long axis. Gated images were also obtained. Perfusion SPECT analysis: Review of the stress images demonstrate normal uptake of tracer noted in all areas of the myocardium with a defect noted in the mid to distal anterior wall and apex which appears to persist on the resting images as well. The above is suggestive of a cardiomyopathy or apical defect due to pacemaker activity. No reversibility is noted suggest ischemia. Gated SPECT analysis: The gated ejection fraction is 32%. Conclusion: Normal exercise myocardial perfusion stress test at a moderate workload Reduced ejection fraction.
== END | disposition home or self-care (01) ==
PROVIDERS: PCP Family Medicine; Referring Provider Nurse Practitioner Family; Visit Provider Nurse Practitioner Family
DX: I25.10 Atherosclerotic heart disease of native coronary artery without angina pectoris (principal); I44.1 Atrioventricular block, second degree; Z95.0 Presence of cardiac pacemaker
CPT/HCPCS: 78452; 93017; A9500

== ENCOUNTER → 2024-10-11 | Outpatient (CLI) | payer MEDICARE, SELFPAY ==
[2024-10-11 15:39] LABS: Hemoglobin 13.6 g/dL (13.0-16.5); Mean Corp Hgb Conc 32.4 g/dL (32-36); Mean Corpuscular Volume 89.6 fL (80-94); Mean Platelet Vol. 13.3 fl (6.2-12.0); Platelet Count 176 K/mm3 (150-450); RBC Distribution Width CV 12.9 % (11.6-14.6); RBC Distribution Width SD 42.2 fl (35.1-43.9); Red Blood Count 4.69 M/mm3 (4.6-6.2); White Blood Count 9.4 K/mm3 (4.4-11.0)
[2024-10-11 16:33] LABS: AST(SGOT) 23 U/L (15-37); Alanine Aminotransfer ALT/SGPT 24 U/L (16-61); Albumin, Serum 3.7 g/dL (3.2-5.0); Alkaline Phosphatase 103 U/L (45-117); Anion Gap 7 (5-15); BUN 19 mg/dL (7-18); BUN/Creat Ratio 22.1 RATIO (10-20); Calcium,Total 8.9 mg/dL (8.5-10.1); Chloride 102 mmol/L (98-107); Creatinine, Serum 0.86 mg/dL (0.70-1.30); EST Glomerular Filtration Rate 94 mL/min (>60); Est Glom Filt Rate - Afr Amer 114 mL/min (>60); Globulin 3.8 g/dL (2.2-4.2); Glucose 106 mg/dL (74-106); PSA,Total - Annual Screen 3.47 ng/mL (0.00-4.00); Potassium 3.9 mmol/L (3.5-5.1); Protein, Total 7.5 g/dL (6.4-8.2); Sodium Level 134 mmol/L (136-145)
== END | disposition home or self-care (01) ==
LOC: MFPLAB 12:11
PROVIDERS: PCP Family Medicine; Visit Provider Family Medicine
DX: I10 Essential (primary) hypertension (principal); Z12.5 Encounter for screening for malignant neoplasm of prostate
CPT/HCPCS: 36415; 80053; 84153; 85027; G0103

== ENCOUNTER → 2025-03-26 | Outpatient (CLI) | payer MEDICARE, SELFPAY ==
[2025-03-26 09:48] LABS: PSA,Total- Diagnostic 2.57 ng/mL (0.00-4.00)
== END | disposition home or self-care (01) ==
LOC: LAB 08:52
PROVIDERS: PCP Family Medicine; Referring Provider Urology; Visit Provider Urology
DX: R97.20 Elevated prostate specific antigen [PSA] (principal)
CPT/HCPCS: 36415; 84153

== ENCOUNTER → 2025-04-26 | Outpatient (CLI) | payer MEDICARE, SELFPAY ==
--- NOTE | 2025-04-26 09:30 | RAD_ITS ---
PROCEDURE: L/S SPINE W BEND MIN 6 VW 04/26/2025 REASON FOR EXAM: BACK PAIN WITH R LEG RADIATION TECHNIQUE: Standing AP view(s) of the thoracic and lumbar spine. COMPARISON: None. FINDINGS: Grade 1 anterolisthesis of L5 on S1 measuring 5.7 mm secondary to bilateral pars defects. No evidence of associated instability on flexion/extension images. Mild degenerative levoscoliosis apex at L3. There are diffuse spondylotic changes. Findings are demonstrated to by diffuse disc space narrowing, osteophyte formation and degenerative endplate sclerosis. There is diffuse facet joint arthropathy with secondary bilateral neural foramina narrowing. No fracture or dislocation is seen. No aggressive lytic or blastic bony lesion is noted. RAD/L/S Spine w Bend Min 6 Vw IMPRESSION: No evidence for acute abnormality. Diffuse spondylosis. No evidence of instability on flexion/extension images. Reading [facility]
== END | disposition home or self-care (01) ==
LOC: MTRAD 09:27
PROVIDERS: PCP Family Medicine; Referring Provider Family Medicine; Visit Provider Family Medicine
DX: M54.41 Lumbago with sciatica, right side (principal)
CPT/HCPCS: 72114

== ENCOUNTER → 2025-05-25 | Outpatient (CLI) | payer MEDICARE, SELFPAY ==
--- NOTE | 2025-05-25 07:51 | ECHOCS_ITS ---
Reason For Study Reason For Study: EVAUATE EF Procedure This was a 2D Doppler, Color Flow transthoracic echocardiogram. The study was technically difficult. Exam performed in department. Left Ventricle Normal LV size. The left ventricular ejection fraction is 35 %. Moderate segmental systolic dysfunction (see wall motion). Stage 1 diastolic dysfunction. Septal [place] : Hypokinetic. Lateral [place] : Hypokinetic. Mid-Anterior : Hypokinetic. The rest of the wall segments are hypokinetic. Right Ventricle Normal RV size. ICD or pacer leads identified within the right ventricle. Tricuspid Valve Normal tricuspid valve. Mild (1+) tricuspid valve insufficiency. Pulmonary artery systolic pressure is 33 mmHg. Aortic Valve Trisinus/trileaflet aortic valve. Pulmonic Valve Normal pulmonic valve. Great Vessels Normal aortic root. The pulmonary artery is normal size. Pericardium/Pleural No pericardial effusion. Medication 22 gauge I.V. with prn adaptor inserted into right arm. Diluted definity 1.5ml given slow IV push to enhance endocardial definition. MMode/2D Measurements & Calculations LVIDd: 5.8 cm IVSd: 1.1 cm Ao root diam: 3.6 cm LVIDs: 4.5 cm LVPWd: 1.1 cm RVDd: 4.0 cm FS: 23.0 % LAV(MOD-bp): 43.9 ml LVAd ap4: 44.3 cm2 LVAd ap2: 38.7 cm2 LAV(MOD-bp) Indexed: 20.2 ml/m2 LVLd ap4: 9.3 cm LVLd ap2: 8.9 cm LAV(MOD-sp2): 42.5 ml EDV(MOD-sp4): 170.3 ml EDV(MOD-sp2): 138.2 ml LAV(MOD-sp4): 44.1 ml EDV(sp4-el): 179.9 ml EDV(sp2-el): 143.1 ml LVAs ap4: 34.0 cm2 LVAs ap2: 28.8 cm2 LVLs ap4: 8.3 cm LVLs ap2: 7.8 cm ESV(MOD-sp4): 112.1 ml ESV(MOD-sp2): 88.3 ml ESV(sp4-el): 118.6 ml ESV(sp2-el): 89.5 ml EF(MOD-sp4): 34.2 % EF(MOD-sp2): 36.1 % EF(sp4-el): 34.1 % SV(MOD-sp4): 58.1 ml SV(MOD-sp2): 49.9 ml SV(sp4-el): 61.3 ml SI(MOD-sp4): 26.8 ml/m2 SI(MOD-sp2): 23.0 ml/m2 LA A4 area: 17.6 cm2 LA dimension(2D): 3.5 cm RA A4 area: 14.8 cm2 TAPSE: 2.0 cm Time Measurements MV dec time: 0.11 sec Doppler Measurements & Calculations MV E max tim: 54.1 cm/sec Lat Peak E' Tim: 6.7 cm/sec Med Peak E' Tim: 6.2 cm/sec MV A max tim: 95.6 cm/sec E/E' lat: 8.1 E/E' med: 8.8 MV E/A: 0.57 Ao V2 max: 132.8 cm/sec LV V1 max: 75.4 cm/sec PA V2 max: 104.0 cm/sec Ao max P.1 mmHg LV V1 max P.3 mmHg TR max tim: 269.4 cm/sec TR max P.0 mmHg ECHO/Echo Complete W/ Contrast Interpretation Summary Normal RV size. Normal LV size. The left ventricular ejection fraction is 35 %. Stage 1 diastolic dysfunction. Moderate segmental systolic dysfunction (see wall motion). Ordering Physician: Neil Russo Referring Physician: ACE MURRAY Performed By: Jessica, Leda, RDCS
== END | disposition home or self-care (01) ==
LOC: CVS 07:50
PROVIDERS: PCP Family Medicine; Referring Provider Nurse Practitioner Family; Visit Provider Nurse Practitioner Family
DX: I44.1 Atrioventricular block, second degree (principal)
CPT/HCPCS: 93306; Q9957; A4216; C8929

== ENCOUNTER 2025-06-05 08:30 | Outpatient (RCR) | payer MEDICARE, SELFPAY ==
--- NOTE | 2025-05-04 15:21 | HP.PTEVAL_ITS ---
Patient's Visit Information Visit Information Visit Information: HEVER OCHOA is a 69 year old M referred to Physical Therapy by Dr. Wicho Alberts MD with a diagnosis of DDD LUMBAR SPINE. Date of Evaluation: 05/01/25 Physical Therapist: Guero Lepe PT, Cert MDT, OCS Visit Plan Frequency: 2x /Week Duration: 4 Weeks Plan: PT INTERVENTIONS DLS ,POSTURAL EX'S ,LE FLEXABILITY ,ACTIVITY MODIFICATION AND MODALITIES PRN Subjective Subjective: This 69 y/o male presents to physical therapy with lumbar pain. Patient developed Lumbar in November. Patient noticed symptoms in right leg when walking ~ 1/4 mile. Symptoms worse Right lumbar buttuck to lateral lag to knee. Described as sharp pain and cramp. Dr Alberts recommended PT no medication. X-rays showed grade 1 anterolisthesis of L5 on S1 measuring 5.7 mm secondary to bilateral pars defects.No evidence of associated instability on flexion/extension images.Mild degenerative levoscolios is apex at L3. There are diffuse spondylotic changes. Findings are demonstrated to by diffuse disc space narrowing, osteophyte formation and degenerative endplate sclerosis. Aggravating factors walking,standing 20-30 mins.,sitting pressure. Alleviating factors rest. Denies paresthesia/tingling -. Bowel/bladder-. Patient sleeps good. No h/o injury . No prior tx . Hobbies/leisure golfing. Patient condition affects QOL and function/ADLS SOCIAL: VOCATION: retired [employer] Pain Right Lower Extremity: Pain Intensity (Out of 10): 5 Pain Intensity Range: 10 Objective Objective: POSTURE: mild forward posture GAIT: reciprocal pattern PALAPTION: unremarkable SYMMETRIES: align FLEXABILITY: hamstrings min tight MMT: quads/hams 4/5 ,hip flexion 4/5 ,ankle 5/5 LUMBAR ROM: flexion mod loss ,extension mod extension ,side glides min loss Special Tests L/S Slump test left side: Negative L/S Slump test right side: Negative L/S Left Straight Leg Raise: Negative L/S Right Straight Leg Raise: Negative Lumbar Standing: Flexion - Mechanical Response: No effect Lumbar Standing: Flexion - Symptoms During Testing: Increases Lumbar Standing: Flexion - Symptoms After Testing: No worse Lumbar Standing: Extension - Mechanical Response: No effect Lumbar Standing: Extension - Symptoms During Testing: Increases Lumbar Standing: Extension - Symptoms After Testing: No worse Lumbar Standing: Right Side Glides - Mechanical Response: No effect Lumbar Standing: Right Side [place] - Symptoms During Testing: No effect Lumbar Standing: Right Side [place] - Symptoms After Testing: No effect Lumbar Standing: Left Side [place] - Mechanical Response: No effect Lumbar Standing: Left Side [place] - Symptoms During Testing: No effect Lumbar Standing: Left Side [place] - Symptoms After Testing: No effect Lumbar Lying: Flexion - Mechanical Response: No effect Lumbar Lying: Flexion - Symptoms During Testing: No effect Lumbar Lying: Flexion - Symptoms After Testing: No effect Lumbar Lying: Extension - Mechanical Response: No effect Lumbar Lying: Extension - Symptoms During Testing: Increases Lumbar Lying: Extension - Symptoms After Testing: No worse Balance/Special Test Scores Oswestry Low Back Score: 19 Goals Goal 1:: Patient to be I with HEP for back Goal Time Frame: 4-6 Weeks Goal 2:: Patient to improve lumbar ROM for function of recovery for ADLS and housework task Goal Time Frame: 4-6 Weeks Goal 3:: Patient to improve back oswestry score by 5 points to improve QOL Goal Time Frame: 4-6 Weeks Goal 4:: Patient be able to walk 20-30 min with radicular symptoms in right leg Goal Time Frame: 4-6 Weeks Rehabilitation Potential Physical Therapy Diagnosis: This patient has foraminal stenosis affecting right leg worse with walking/standing affects ADLS and housework thus benefit from skilled PT Rehabilitation Potential: Good Anticipated Interventions Patient/Client Instruction: Educate patient on: Condition and Plan of Care For the Purpose of:: To decrease pain, To increase ROM, To improve muscle performance and motor function, To improve ability to perform ADL's, To increase tolerance to activity/condition/position, To improve performance and independence with ADL's, To improve ability of physical actions for home/community/work/leisure, To improve health of tissue, To decrease soft tissue restriction and To increase flexibility/ROM Therapeutic Exercise to Include: Strength training, Postural training, Flexibilty training, Active ROM and Dynamic Lumbar Stabilization For the Purpose of:: To decrease pain, To increase ROM, To improve muscle performance and motor function, To increase tolerance to activit y/condition/position, To improve ability of physical actions for home/community/work/leisure, To improve gait and locomotor functions, To improve health of tissue, To decrease soft tissue restriction and To increase flexibility/ROM TENS: Yes IF ES: Yes Cryotherapy (ice pack, ice massage): Yes Thermo therapy (hot pack): Yes Ultrasound (thermal/non thermal): Yes For the Purpose of:: To decrease pain, To increase ROM, To improve nutrient delivery to tissue, To increase oxygenation perfusion, To improve health of tissue and To decrease soft tissue restriction Text: Thank you for the opportunity to evaluate your patient. For Medicare and Medicare HMO plans, please review the plan of care and approve it. It will need to be FAXED BACK to us at [phone] for Medicare purposes. For Medicare only, by signing this I certify the plan of care. Please let me know if there are questions or concerns regarding this plan of care. Physician Signature: Date:
--- NOTE | 2025-06-05 08:46 | HP.PTDCSUM ---
Discharge Summary D/C summary: It has been my pleasure to treat HEVER OCHOA referred by Dr. Wicho Alberts MD, with the diagnosis of DDD LUMBAR SPINE for a total of 9 visit(s). Discharge Date: 06/05/25 Please see the following information for a summary of their discharge status. Subjective Subjective: Walking better and did 2 miles -standing and lifting -no sciatica pain - Able to walk to improve ejection fracture Pain Right Lower Extremity: Pain Intensity (Out of 10): 0 Overall Improvement % Improvement: 80 Objective Objective/Function: POSTURE: mild forward posture GAIT: reciprocal pattern PALAPTION: unremarkable SYMMETRIES: align FLEXABILITY: hamstrings min tight MMT: quads/hams 4/5 ,hip flexion 4/5 ,ankle 5/5 LUMBAR ROM: flexion WFL ,extension MIN extension ,side glides WFL Goals Goal 1:: Patient to be I with HEP for back Goal Progress: Goal Met Goal 2:: Patient to improve lumbar ROM for function of recovery for ADLS and housework task Goal Progress: Goal Met Goal 3:: Patient to improve back oswestry score by 5 points to improve QOL Goal Progress: Goal Met Goal 4:: Patient be able to walk 20-30 min with radicular symptoms in right leg Goal Progress: Goal Met Plan Plan: D/C D/C Information Discharge Comments: HEP d/c sentence: If there are questions or concerns regarding this patient's physical therapy, please feel free to call me at [phone]. Thank you for the referral of this patient. Sincerely, Guero Lepe, PT, Cert MDT, OCS Balance/Gait/Functional tests Balance/Special Test Scores Oswestry Low Back Score: 1 Improvement % Improvement: 80
== END 2025-06-05 19:00 | disposition home or self-care (01) ==
LOC: PT 08:30
PROVIDERS: PCP Family Medicine; Referring Provider Family Medicine; Visit Provider Family Medicine
DX: M51.369 Other intervertebral disc degeneration, lumbar region without mention of lumbar back pain or lower extremity pain (principal)
CPT/HCPCS: 97110; 97162; 97530

== ENCOUNTER → 2025-11-12 | Outpatient (CLI) | payer MEDICARE, SELFPAY ==
--- NOTE | 2025-11-12 12:37 | ECHOD_ITS ---
Reason For Study Reason For Study: DCMP Procedure This was a 2D Doppler, Color Flow transthoracic echocardiogram. The study was technically difficult. Contrast injection was performed. Exam performed in department. Left Ventricle Normal LV size. Mild concentric left ventricular hypertrophy. Moderate global left ventricular systolic dysfunction. The left ventricular ejection fraction is 35 %. Unable to assess diastolic dysfunction. [place] : Severely Hypokinetic. Mid- Anterior : Hypokinetic. Right Ventricle ICD or pacer leads identified within the right ventricle. Normal RV size. Normal systolic function. Atria Normal left atrium. ICD or pacer leads identified within the right atrium. Normal right atrium. Mitral Valve Mild focal mitral valve calcification of the anterior leaflet. There is no mitral valve stenosis. Mild-Moderate (1-2+) mitral valve insufficiency. Tricuspid Valve Normal tricuspid valve. Mild (1+) tricuspid valve insufficiency. Pulmonary artery systolic pressure is 27 mmHg. Aortic Valve Trisinus/trileaflet aortic valve. Pulmonic Valve Normal pulmonic valve. Mild (1+) pulmonic valve insufficiency. Great Vessels Normal sized aortic root. Normal sized IVC that collapses with respiration/sniff. Pericardium/Pleural No pericardial effusion. Medication 22 gauge I.V. with prn adaptor inserted into right arm. Diluted definity 1.5ml given slow IV push to enhance endocardial definition. MMode/2D Measurements & Calculations LVIDd: 5.3 cm IVSd: 1.3 cm Ao root diam: 3.3 cm LVIDs: 4.8 cm LVPWd: 1.3 cm RVDd: 4.1 cm FS: 8.8 % LAV(MOD-bp): 75.7 ml LVAd ap4: 47.7 cm2 SV(MOD-sp4): 68.4 ml LAV(MOD-bp) Indexed: 34.6 ml/m2 LVLd ap4: 9.2 cm SI(MOD-sp4): 31.3 ml/m2 LAV(MOD-sp2): 68.5 ml EDV(MOD-sp4): 195.8 ml LAV(MOD-sp4): 54.6 ml EDV(sp4-el): 209.3 ml LVAs ap4: 37.2 cm2 LVLs ap4: 8.7 cm ESV(MOD-sp4): 127.4 ml ESV(sp4-el): 135.0 ml EF(MOD-sp4): 34.9 % EF(sp4-el): 35.5 % SV(sp4-el): 74.3 ml LA A4 area: 17.7 cm2 LA dimension(2D): 4.4 cm RA A4 area: 16.9 cm2 Doppler Measurements & Calculations MV E max kamaljit: 123.3 cm/sec Ao V2 max: 136.8 cm/sec LV V1 max: 90.1 cm/sec Ao max P.5 mmHg LV V1 max P.2 mmHg Ao V2 mean: 94.0 cm/sec LV V1 mean P.2 mmHg Ao mean P.2 mmHg LV V1 mean: 71.1 cm/sec Ao V2 VTI: 29.3 cm LV V1 VTI: 18.9 cm AV (velocity ratio): 0.65 MR max kamaljit: 549.4 cm/sec TR max kamaljit: 242.7 cm/sec MR max P.7 mmHg TR max P.6 mmHg MR mean kamaljit: 394.3 cm/sec MR mean P.5 mmHg MR VTI: 200.8 cm ECHO/Echo Complete W/ Contrast Interpretation Summary The left ventricular ejection fraction is 35 %. Moderate global left ventricular systolic dysfunction. Mild concentric left ventricular hypertrophy. Mild-Moderate (1-2+) mitral valve insufficiency. Mild (1+) tricuspid valve insufficiency. Normal LV size. Contrast injection was performed. Compared to prior study, there is no signific ant change. Ordering Physician: Kwame Cabello Referring Physician: Kwame Cabello Performed By: Louisa Sutton RCS
== END | disposition home or self-care (01) ==
PROVIDERS: PCP Family Medicine; Referring Provider Internal Medicine Cardiovascular Disease; Visit Provider Internal Medicine Cardiovascular Disease
DX: I42.0 Dilated cardiomyopathy (principal)
CPT/HCPCS: 93306; Q9957; A4216; C8929